=== PATIENT | male | born 1955 | race Two or more races ===

== ENCOUNTER → 2021-12-28 | Outpatient (CLI) | payer BC ==
[2021-12-28 08:41] LABS: Basophils # (auto) 0 10 ^3/uL (0-0.2); Basophils % (auto) 0.7 % (0.0-2.0); Eosinophils # (auto) 0.2 10 ^3/uL (0-0.8); Eosinophils % (auto) 2.2 % (0.0-7.0); Hematocrit 43.4 % (41.0-53.0); Hemoglobin 14.3 g/dL (13.5-17.5); Lymphocytes # (auto) 1.5 10 ^3/uL (0.4-5.4); Lymphocytes % (auto) 22.7 % (10.0-50.0); Mean Corpuscular Hemoglobin 30.3 pg (28.0-32.0); Mean Corpuscular Hgb Conc. 32.9 g/dL (32.0-36.0); Mean Corpuscular Volume 92.1 fL (80.0-100.0); Monocytes # (auto) 0.6 10 ^3/uL (0-1.3); Monocytes % (auto) 8.2 % (0.0-12.0); Neutrophils # (auto) 4.5 10 ^3/uL (1.6-8.6); Neutrophils % (auto) 66.2 % (37.0-80.0); Nucleated Red Blood Cells % 0.1 %; Red Blood Cells 4.71 10^6/uL (4.5-5.90); Red Cell Distribution Width 13.3 % (11.8-14.3); White Blood Cell 6.8 10^3/uL (4.4-10.8)
[2021-12-28 09:29] LABS: Alanine Aminotransferase 42 U/L (16-61); Aspartate Aminotransferase 32 U/L (15-37); GFR African American 132 mL/min; GFR Non-African American 109 mL/min; Total Protein 7.4 g/dL (6.4-8.2)
[2021-12-28 10:17] LABS: Albumin 3.9 g/dL (3.4-5.0); Alkaline Phosphatase 87 U/L (45-117); Anion Gap 6 (5-15); BUN/Creatinine Ratio 11.8; Bilirubin, Total 0.3 mg/dL (0.2-1.0); Blood Urea Nitrogen 9 mg/dL (7-18); Calcium 8.9 mg/dL (8.5-10.1); Carbon Dioxide 25 mmol/L (21-32); Chloride 103 mmol/L (98-107); Glucose 113 mg/dL (74-106); Potassium 4.2 mmol/L (3.5-5.1); Sodium 134 mmol/L (136-145)
[2021-12-28 10:18] LABS: Cholesterol 114 mg/dL (< 200); HDL Cholesterol 39 mg/dL (40-59); LDL Cholesterol 60 mg/dL (< 100); Triglycerides 238 mg/dL (< 150)
== END | disposition home or self-care (01) ==
LOC: LAB 08:30
PROVIDERS: ATTEND Student in an Organized Health Care Education/Training Program
DX: Z12.11 Encounter for screening for malignant neoplasm of colon (principal); E11.9 Type 2 diabetes mellitus without complications; I10 Essential (primary) hypertension
CPT/HCPCS: 36415; 80053; 80061; 83036; 85025

== ENCOUNTER → 2022-03-27 | Outpatient (CLI) | payer BC ==
[2022-03-27 07:53] LABS: Basophils # (auto) 0 10 ^3/uL (0-0.2); Basophils % (auto) 0.6 % (0.0-2.0); Eosinophils # (auto) 0.1 10 ^3/uL (0-0.8); Eosinophils % (auto) 1.9 % (0.0-7.0); Hematocrit 41.7 % (41.0-53.0); Hemoglobin 14.6 g/dL (13.5-17.5); Lymphocytes # (auto) 1.5 10 ^3/uL (0.4-5.4); Lymphocytes % (auto) 25.2 % (10.0-50.0); Mean Corpuscular Hemoglobin 31.7 pg (28.0-32.0); Mean Corpuscular Volume 90.6 fL (80.0-100.0); Monocytes # (auto) 0.6 10 ^3/uL (0-1.3); Monocytes % (auto) 10.4 % (0.0-12.0); Neutrophils # (auto) 3.7 10 ^3/uL (1.6-8.6); Neutrophils % (auto) 61.9 % (37.0-80.0); Nucleated Red Blood Cells % 0.1 %; Red Cell Distribution Width 13.1 % (11.8-14.3); White Blood Cell 5.9 10^3/uL (4.4-10.8)
[2022-03-27 08:45] LABS: Albumin 3.9 g/dL (3.4-5.0); BUN/Creatinine Ratio 10.4; Bilirubin, Total 0.5 mg/dL (0.2-1.0); Calcium 8.9 mg/dL (8.5-10.1); Potassium 4.1 mmol/L (3.5-5.1); Total Protein 7.4 g/dL (6.4-8.2)
[2022-03-27 08:46] LABS: Free T3 3.57 pg/mL (2.3-4.2); Free T4 (Free Thyroxine) 0.97 ng/dL (0.89-1.76)
== END | disposition home or self-care (01) ==
LOC: LAB 07:37
PROVIDERS: ATTEND Internal Medicine
DX: I10 Essential (primary) hypertension (principal)
CPT/HCPCS: 36415; 80053; 80061; 84439; 84443; 84481; 85025

== ENCOUNTER → 2022-04-15 | Outpatient (CLI) | payer BC | END | disposition home or self-care (01) | LOC: XYW 08:46 | PROVIDERS: ATTEND Internal Medicine | DX: I08.3 Combined rheumatic disorders of mitral, aortic and tricuspid valves (principal); E65 Localized adiposity; Z95.2 Presence of prosthetic heart valve | CPT/HCPCS: 93306 ==

== ENCOUNTER → 2022-07-09 | Outpatient (CLI) | payer BC | END | disposition home or self-care (01) | LOC: LAB 08:20 | PROVIDERS: ATTEND Student in an Organized Health Care Education/Training Program | DX: E11.9 Type 2 diabetes mellitus without complications (principal) | CPT/HCPCS: 36415; 82043; 82274; 83036 ==

== ENCOUNTER → 2023-08-05 | Outpatient (CLI) | payer BC ==
[2023-08-05 08:10] LABS: Basophils # (auto) 0 10 ^3/uL (0-0.2); Basophils % (auto) 0.4 % (0.0-2.0); Eosinophils # (auto) 0.1 10 ^3/uL (0-0.8); Eosinophils % (auto) 0.9 % (0.0-7.0); Hematocrit 40.6 % (41.0-53.0); Hemoglobin 13.8 g/dL (13.5-17.5); Lymphocytes # (auto) 1.5 10 ^3/uL (0.4-5.4); Lymphocytes % (auto) 16.9 % (10.0-50.0); Mean Corpuscular Hemoglobin 30.7 pg (28.0-32.0); Mean Corpuscular Hgb Conc. 33.9 g/dL (32.0-36.0); Mean Corpuscular Volume 90.5 fL (80.0-100.0); Monocytes # (auto) 1.1 10 ^3/uL (0-1.3); Monocytes % (auto) 12.1 % (0.0-12.0); Neutrophils # (auto) 6.3 10 ^3/uL (1.6-8.6); Neutrophils % (auto) 69.7 % (37.0-80.0); Red Blood Cells 4.48 10^6/uL (4.5-5.90); White Blood Cell 9.1 10^3/uL (4.4-10.8)
[2023-08-05 08:41] LABS: Alanine Aminotransferase 20 U/L (7-40); Albumin 4.7 g/dL (3.2-4.8); Alkaline Phosphatase 83 U/L (46-116); Anion Gap 6 (5-15); Aspartate Aminotransferase 19 U/L (13-40); BUN/Creatinine Ratio 10.3 (10.0-20.0); Blood Urea Nitrogen 7 mg/dL (9-23); Calcium 9.2 mg/dL (8.5-10.1); Carbon Dioxide 29 mmol/L (20-30); Chloride 97 mmol/L (98-107); Glucose 150 mg/dL (74-106); LDL Cholesterol 54 mg/dL (< 100); Potassium 3.7 mmol/L (3.5-5.1); Sodium 132 mmol/L (136-145); Triglycerides 122 mg/dL (< 150)
[2023-08-05 08:42] LABS: Bilirubin, Total 0.6 mg/dL (0.2-1.0); Cholesterol 113 mg/dL (< 200); HDL Cholesterol 38 mg/dL (40-59); Total Protein 7.1 g/dL (5.7-8.2)
[2023-08-05 09:07] LABS: Creatinine, Urine 173.67 mg/dL (30.0-125.0)
== END | disposition home or self-care (01) ==
LOC: LAB 07:54
PROVIDERS: ATTEND Student in an Organized Health Care Education/Training Program
DX: I10 Essential (primary) hypertension (principal); E11.39 Type 2 diabetes mellitus with other diabetic ophthalmic complication; F17.200 Nicotine dependence, unspecified, uncomplicated; E78.5 Hyperlipidemia, unspecified
CPT/HCPCS: 36415; 80053; 80061; 82043; 82570; 83036; 85025; 87086

== ENCOUNTER → 2024-04-12 | Outpatient (CLI) | payer BC ==
[2024-04-12 08:21] LABS: Urine Bacteria None Seen /hpf (None Seen)
[2024-04-12 08:48] LABS: Basophils # (auto) 0 10 ^3/uL (0-0.2); Basophils % (auto) 0.5 % (0.0-2.0); Eosinophils # (auto) 0.1 10 ^3/uL (0-0.8); Eosinophils % (auto) 0.9 % (0.0-7.0); Hematocrit 42.9 % (41.0-53.0); Hemoglobin 14.9 g/dL (13.5-17.5); Lymphocytes # (auto) 1.3 10 ^3/uL (0.4-5.4); Lymphocytes % (auto) 20.6 % (10.0-50.0); Mean Corpuscular Hemoglobin 31.3 pg (28.0-32.0); Mean Corpuscular Hgb Conc. 34.8 g/dL (32.0-36.0); Mean Corpuscular Volume 89.9 fL (80.0-100.0); Monocytes # (auto) 0.8 10 ^3/uL (0-1.3); Monocytes % (auto) 13.6 % (0.0-12.0); Neutrophils % (auto) 64.4 % (37.0-80.0); Nucleated Red Blood Cells % 0.1 %; Platelet Count (auto) 371 10^3/uL (140-450); Red Blood Cells 4.77 10^6/uL (4.5-5.90); Red Cell Distribution Width 13.1 % (11.8-14.3); White Blood Cell 6.1 10^3/uL (4.4-10.8)
[2024-04-12 08:54] LABS: Urine Blood Negative /uL (Negative); Urine Clarity Clear (Clear); Urine Color Light-Yellow (Yellow); Urine Protein, UAD Negative (Negative); Urine Specific Gravity 1.011 (1.001-1.035); Urine Urobilinogen Normal (Negative); Urine WBC <1 /hpf (0 - 3)
[2024-04-12 09:25] LABS: Alanine Aminotransferase 25 U/L (7-40); Albumin 4.5 g/dL (3.2-4.8); Alkaline Phosphatase 125 U/L (46-116); Anion Gap 7 (5-15); Aspartate Aminotransferase 23 U/L (13-40); BUN/Creatinine Ratio 11.8 (10.0-20.0); Bilirubin, Total 0.5 mg/dL (0.2-1.0); Blood Urea Nitrogen 9 mg/dL (9-23); Calcium 9.8 mg/dL (8.7-10.4); Carbon Dioxide 27 mmol/L (20-31); Chloride 96 mmol/L (98-107); Cholesterol 109 mg/dL (< 200); Glucose 122 mg/dL (74-106); HDL Cholesterol 35 mg/dL (40-59); LDL Cholesterol 54 mg/dL (< 100); Potassium 4.3 mmol/L (3.5-5.1); Sodium 130 mmol/L (136-145); Total Protein 7.4 g/dL (5.7-8.2); Triglycerides 145 mg/dL (< 150)
== END | disposition home or self-care (01) ==
LOC: LAB 08:08
PROVIDERS: ATTEND Nurse Practitioner
DX: E11.9 Type 2 diabetes mellitus without complications (principal); E03.9 Hypothyroidism, unspecified; E78.00 Pure hypercholesterolemia, unspecified
CPT/HCPCS: 36415; 80053; 80061; 81001; 82274; 83036; 84153; 84443; 85025

== ENCOUNTER → 2024-05-18 | Outpatient (CLI) | payer BC | END | disposition home or self-care (01) | LOC: RT 08:26 | PROVIDERS: ATTEND Internal Medicine Pulmonary Disease | DX: R05.9 Cough, unspecified (principal); R06.00 Dyspnea, unspecified | CPT/HCPCS: 94060; 94618; 94727; 94729 ==

== ENCOUNTER → 2024-06-22 | Outpatient (CLI) | payer BC ==
[2024-06-22 08:31] LABS: Basophils # (auto) 0 10 ^3/uL (0-0.2); Basophils % (auto) 0.4 % (0.0-2.0); Eosinophils # (auto) 0 10 ^3/uL (0-0.8); Eosinophils % (auto) 0.6 % (0.0-7.0); Hematocrit 41.9 % (41.0-53.0); Hemoglobin 14.2 g/dL (13.5-17.5); Lymphocytes # (auto) 0.7 10 ^3/uL (0.4-5.4); Lymphocytes % (auto) 13.7 % (10.0-50.0); Mean Corpuscular Hemoglobin 29.9 pg (28.0-32.0); Mean Corpuscular Hgb Conc. 33.8 g/dL (32.0-36.0); Mean Corpuscular Volume 88.3 fL (80.0-100.0); Monocytes # (auto) 0.6 10 ^3/uL (0-1.3); Neutrophils # (auto) 4.1 10 ^3/uL (1.6-8.6); Neutrophils % (auto) 74.3 % (37.0-80.0); Platelet Count (auto) 389 10^3/uL (140-450); Red Blood Cells 4.75 10^6/uL (4.5-5.90); Red Cell Distribution Width 13.5 % (11.8-14.3); White Blood Cell 5.5 10^3/uL (4.4-10.8)
[2024-06-22 08:44] LABS: INR 0.97 (0.9-1.15); Partial Thromboplastin Time 29.3 SEC (24.5-34.5); Prothrombin Time 10.3 sec (9.3-11.8)
[2024-06-22 09:17] LABS: Alanine Aminotransferase 26 U/L (7-40); Albumin 4.6 g/dL (3.2-4.8); Anion Gap 10 (5-15); Aspartate Aminotransferase 28 U/L (13-40); BUN/Creatinine Ratio 9.1 (10.0-20.0); Calcium 10.1 mg/dL (8.7-10.4); Carbon Dioxide 28 mmol/L (20-31); Potassium 4.3 mmol/L (3.5-5.1)
[2024-06-22 09:19] LABS: Bilirubin, Total 0.4 mg/dL (0.2-1.0)
[2024-06-22 09:20] LABS: Total Protein 7.5 g/dL (5.7-8.2)
[2024-06-22 09:32] LABS: Alkaline Phosphatase 122 U/L (46-116); Blood Urea Nitrogen 6 mg/dL (9-23); Chloride 91 mmol/L (98-107); Glucose 194 mg/dL (74-106); Sodium 129 mmol/L (136-145)
== END | disposition home or self-care (01) ==
LOC: LAB 08:10
PROVIDERS: ATTEND Internal Medicine Pulmonary Disease
DX: J43.9 Emphysema, unspecified (principal)
CPT/HCPCS: 36415; 80053; 85025; 85610; 85730

== ENCOUNTER 2024-06-29 07:21 | Day surgery (SDC) | payer BC ==
[~2024-06-29] VITALS: Ht 170.2 cm; Wt 83.5 kg
[~2024-06-29 07:21] MED LIST: ASPI325T6 PO; ATOR-507 PO; HYDR25TA4 PO; LOSA-535 PO; METF-372 PO; METO25TA5 PO
[2024-06-29] MEDS ORDERED: LIDOCAINE 2%HCL (LOCAL ANESTH.) INJ 20ML MDV ONE (07:43)
[2024-06-29] MEDS ORDERED: FLUMAZENIL 0.1 MG/ML INJ 10ML MDV IV ONE (07:43)
[2024-06-29] MEDS ORDERED: NALOXONE HCL 0.4 MG/ML VIAL ONE (07:43)
[2024-06-29] MEDS ORDERED: SODIUM CHLORIDE LOCK 10 ML ONE (07:44)
[2024-06-29] MEDS ORDERED: EPINEPHrine HCL 1 MG/1 ML AMP ONE (07:44)
[2024-06-29] MEDS ORDERED: LIDOCAINE 2% JELLY 11ml (GLYDO) ONE (07:45)
[2024-06-29] MEDS: MIDAZOLAM HCL 5 MG/ML-1ML VIAL ONE (09:06)
[2024-06-29] MEDS: diphenhdrAMINE HCL 50 MG/1 ML VL ONE (09:06)
[2024-06-29] MEDS: GLYCOPYRROLATE 0.2 MG/ML 1ML VIAL ONE (09:06)
[2024-06-29] MEDS: fentaNYL CITRATE 100 MCG/2 ML VL ONE (09:06)
[2024-06-29 09:32] VITALS: TEMP 98.8; O2SAT 100
--- NOTE | 2024-06-29 09:37 | DVHNC2 ---
Procedure - Bronchoscopy procedure note: Indications: Left hilar mass, rule out malignancy. Medicines: Glycopyrrolate 0.2 mg IV push, Versed 5 mg IV push, fentanyl 75 mcg IV push, Benadryl 50 mg. Complications: None Procedure: Patient medications and allergies reviewed. The risks and benefits of the procedure and the sedation options and risk were discussed with the patient's healthcare proxy. All questions were answered and informed consent was obtained. Patient identification and proposed procedure were verified prior to the procedure by the physician, and a nurse, and the respiratory therapist in endoscopy room. The heart rate, respiratory rate, oxygen saturations, blood pressure, adequacy of pulmonary ventilation, and response to care were monitored throughout the procedure. The physical status of the patient was reassessed after the procedure. After obtaining informed consent, the bronchoscope was introduced through the endotracheal tube and advanced into the trachea bronchial tree of both lungs. The procedure was accomplished without difficulty. The patient tolerated the procedure well. Findings: The trachea is in normal caliber. The venice is sharp. The tracheobronchial tree of the right lung was examined to at least the first subsegmental level. The bronchial mucosa and anatomy in the right lung are normal. There are no endobronchial lesions. There was no secretions. The left upper lobe, lingula, and left lower lobe were examined to at least the first subsegmental level. Bronchial mucosa and anatomy in the left upper lobe and lingula are normal. There were no endobronchial lesions. There was copious whitish secretions from left main stem bronchus onward throughout L1-L10. These were easily cleared with 10 mL of saline. Left upper lobe (BOSSAMN) Bronchoalveolar lavage (BAL) obtained. BOSSMAN BAL sent for gram stain and culture, and fungal culture. Left upper lobe brushings and biopsies were also obtained. 10 mL of cold saline were places site with resolution of bleeding. There was no active bleeding at the completion of the procedure. Estimated blood loss: Less than 5 mL. Impression: Left upper/lower lobe compression by hilar mass Left upper lobe biopsy, brushings and bronchoalveolar lavage obtained Recommendation: Follow-up BOSSMAN BAL results. Procedure codes: 02254, bronchoscopy, rigid and flexible, including fluoroscopic guidance, one performed; with bronchial endobronchial biopsy, single or multiple sites ROBERT DIAZ MD Jun 29, 2024 09:37
[2024-06-29 11:10] VITALS: BP 126/88; PULSE 91; RESP 19; O2SAT 94
== END 2024-06-29 11:28 | disposition home or self-care (01) ==
LOC: GI 07:21
PROVIDERS: ATTEND Internal Medicine Pulmonary Disease
DX: R91.8 Other nonspecific abnormal finding of lung field (principal); D02.22 Carcinoma in situ of left bronchus and lung; I25.10 Atherosclerotic heart disease of native coronary artery without angina pectoris; I10 Essential (primary) hypertension; E78.5 Hyperlipidemia, unspecified; F17.210 Nicotine dependence, cigarettes, uncomplicated; E11.9 Type 2 diabetes mellitus without complications; Z95.2 Presence of prosthetic heart valve; Z95.1 Presence of aortocoronary bypass graft; Z98.890 Other specified postprocedural states; Z79.899 Other long term (current) drug therapy; Z79.84 Long term (current) use of oral hypoglycemic drugs
CPT/HCPCS: 31624; 31625; 82962; 88104; 88305; J1200; J2250; J3010; 99152; J0171

== ENCOUNTER → 2024-08-04 | Outpatient (CLI) | payer BC ==
[2024-08-04 08:16] LABS: Basophils # (auto) 0 10 ^3/uL (0-0.2); Basophils % (auto) 0.3 % (0.0-2.0); Eosinophils # (auto) 0.1 10 ^3/uL (0-0.8); Hematocrit 39.5 % (41.0-53.0); Hemoglobin 13.9 g/dL (13.5-17.5); Lymphocytes % (auto) 15.8 % (10.0-50.0); Mean Corpuscular Hemoglobin 30.4 pg (28.0-32.0); Mean Corpuscular Hgb Conc. 35.1 g/dL (32.0-36.0); Mean Corpuscular Volume 86.4 fL (80.0-100.0); Monocytes # (auto) 0.7 10 ^3/uL (0-1.3); Monocytes % (auto) 11.3 % (0.0-12.0); Neutrophils # (auto) 4.4 10 ^3/uL (1.6-8.6); Neutrophils % (auto) 71.6 % (37.0-80.0); Nucleated Red Blood Cells % 0.1 %; Platelet Count (auto) 319 10^3/uL (140-450); Red Blood Cells 4.57 10^6/uL (4.5-5.90); Red Cell Distribution Width 13.9 % (11.8-14.3); White Blood Cell 6.1 10^3/uL (4.4-10.8)
[2024-08-04 08:28] LABS: INR 0.95 (0.9-1.15); Prothrombin Time 10.1 sec (9.3-11.8)
[2024-08-04 08:49] LABS: Alanine Aminotransferase 34 U/L (7-40); Alkaline Phosphatase 109 U/L (46-116); Anion Gap 7 (5-15); Aspartate Aminotransferase 18 U/L (13-40); BUN/Creatinine Ratio 11.3 (10.0-20.0); Calcium 10.1 mg/dL (8.7-10.4); Carbon Dioxide 28 mmol/L (20-31); Chloride 99 mmol/L (98-107); Potassium 4.1 mmol/L (3.5-5.1); Total Protein 7.9 g/dL (5.7-8.2)
[2024-08-04 08:50] LABS: Bilirubin, Total 0.4 mg/dL (0.2-1.0)
[2024-08-04 08:53] LABS: Thyroid Stimulating Hormone 2.35 uIU/mL (0.55-4.78)
[2024-08-04 08:55] LABS: Albumin 4.8 g/dL (3.2-4.8); Blood Urea Nitrogen 8 mg/dL (9-23); Glucose 143 mg/dL (74-106); Sodium 134 mmol/L (136-145)
[2024-08-05 07:07] LABS: Hepatitis B Core Total Antibod Negative (Negative)
[2024-08-05 10:25] LABS: Hepatitis B Surface Antigen Negative (Negative); Hepatitis C Antibody Negative (Negative)
[2024-08-05 11:07] LABS: Thyroxine (T4) 7.5 ug/dL (4.5-12.0)
== END | disposition home or self-care (01) ==
LOC: LAB 07:48
PROVIDERS: ATTEND Internal Medicine
DX: C34.92 Malignant neoplasm of unspecified part of left bronchus or lung (principal)
CPT/HCPCS: 36415; 80053; 83615; 84436; 84443; 85025; 85610; 86803; 87340

== ENCOUNTER → 2024-08-13 | Outpatient (CLI) | payer BC | END | disposition home or self-care (01) | LOC: LAB 08:52 | PROVIDERS: ATTEND Internal Medicine | DX: C34.92 Malignant neoplasm of unspecified part of left bronchus or lung (principal) | CPT/HCPCS: 36415; 84520 ==

== ENCOUNTER → 2024-08-31 | Outpatient (CLI) | payer BC ==
[2024-08-31 09:21] LABS: Alanine Aminotransferase 22 U/L (7-40); Albumin 4.6 g/dL (3.2-4.8); Alkaline Phosphatase 98 U/L (46-116); Anion Gap 8 (5-15); Aspartate Aminotransferase 22 U/L (13-40); BUN/Creatinine Ratio 10.3 (10.0-20.0); Bilirubin, Total 0.3 mg/dL (0.2-1.0); Calcium 9.7 mg/dL (8.7-10.4); Carbon Dioxide 28 mmol/L (20-31); Potassium 3.9 mmol/L (3.5-5.1); Total Protein 7.3 g/dL (5.7-8.2)
[2024-08-31 09:29] LABS: Blood Urea Nitrogen 8 mg/dL (9-23); Chloride 93 mmol/L (98-107); Glucose 248 mg/dL (74-106); Sodium 129 mmol/L (136-145)
== END | disposition home or self-care (01) ==
LOC: LAB 08:31
PROVIDERS: ATTEND Licensed Practical Nurse
DX: Z01.812 Encounter for preprocedural laboratory examination (principal); C34.92 Malignant neoplasm of unspecified part of left bronchus or lung
CPT/HCPCS: 36415; 80053

== ENCOUNTER → 2024-09-03 | Outpatient (CLI) | payer BC ==
[2024-09-03] VITALS (9 sets, daily range): BP systolic 116–142; BP diastolic 69–84; PULSE 74–91; RESP 16–24; O2SAT 93–95
[~2024-09-03] MED LIST changes: +IOHEXOL 300 MG/ML 100ML BOTTLE IJ ONE
[2024-09-03] MEDS: MIDAZOLAM HCL 2MG/2ML 2ml VIAL (1mg/ml) ONE (07:42)
[2024-09-03] MEDS: fentaNYL CITRATE 100 MCG/2 ML VL ONE (07:43)
[2024-09-03] MEDS: fentaNYL CITRATE 100 MCG/2 ML VL IV ONE (07:45)
[2024-09-03] MEDS: MIDAZOLAM HCL 2MG/2ML 2ml VIAL (1mg/ml) IV ONE (07:45)
[2024-09-03] MEDS: LIDOCAINE 2%HCL (LOCAL ANESTH.) INJ 10ml MDV ONE (07:51)
--- NOTE | 2024-09-03 09:51 | DVH ---
EXAM: XY CHEST XRAY 1 VIEW Indication: POST LUNG BX Technique: Single frontal view of the chest was obtained Comparison: 09/03/2024 FINDINGS: Lines and Tubes: None Lungs: Patchy left lung consolidative opacities with volume loss. Pleura: No effusion. No pneumothorax. Cardiomediastinal contours: Unremarkable Bones: No acute osseous abnormality. IMPRESSION: Patchy left lung consolidative opacities with volume loss. No definite pneumothorax status post lung biopsy.
--- NOTE | 2024-09-03 12:19 | DVH ---
EXAM: XY CHEST XRAY 1 VIEW Indication: FOLLOW UP LUNG BX Technique: Single frontal view of the chest was obtained Comparison: XY CHEST XRAY 1 VIEW on DOS: 09/03/24 FINDINGS: Lines and Tubes: None Lungs: Multifocal left lung consolidative opacities. Pleura: No effusion. No pneumothorax. Cardiomediastinal contours: Unremarkable Bones: No acute osseous abnormality. IMPRESSION: No pneumothorax status post lung biopsy.
--- NOTE | 2024-09-03 15:55 | DVH ---
CT CHEST WITHOUT CONTRAST, HISTORY: LUNG CANCER PROCEDURE: Informed consent was obtained. The patient was placed supine on the CT scanner. A limited localization CT scan of the lung was obtained with IV contrast. The skin overlying the lesion was pre pped with chlorhexidine which was allowed to dry and draped in sterile fashion. Time out was performe d. The skin and soft tissues were infiltrated with Xylocaine, and IV sedation was administered. With intermittent CT guidance, a 19 gauge Temno outer coaxial guiding needle was advanced into the left oneyda ng mass. The needle position was confirmed with CT scan. 3 core biopsies were obtained using Temno in ner 20 gauge biopsy needle. The specimens were sent in formalin to pathology for analysis. A viscera l blood patch was applied as the needle was withdrawn the needle was withdrawn, and post procedural C T obtained through the biopsy region. No immediate complication was identified was noted, and patient was transport to recovery in stable condition without respiratory distress. DLP = 2481 mGy-cm. SEDATION: Dr. Akosua Bender was personally responsible for the administration of moderate sedation during the procedure performed, including the use of an independent trained observer who had no other duties during the procedure. The drugs utilized were IV fentanyl and versed (see nursing log for details). The total time of supervision by the attending physician was approximately 60 minutes. FINDINGS: Limited CT scan demonstrates an approximately soft tissue mass in the left upper lobe hilar region and the biopsy needle within the margin of the lung mass. No significant post biopsy hemorrha ge or pneumothorax is noted. IMPRESSION/PLAN: CT guided lung biopsy. Pathology pending. ; will follow up CXRs. Bedrest until cleared by DAWNA chiu post-biopsy CXRs.
== END | disposition home or self-care (01) ==
LOC: XYW 07:15
PROVIDERS: ATTEND Internal Medicine
DX: R91.8 Other nonspecific abnormal finding of lung field (principal); J98.4 Other disorders of lung; F17.210 Nicotine dependence, cigarettes, uncomplicated; Z79.82 Long term (current) use of aspirin; Z79.84 Long term (current) use of oral hypoglycemic drugs; Z79.899 Other long term (current) drug therapy
CPT/HCPCS: 32408; 71045; 88305; 88342; J2003; J2250; J3010; Q9967; 10005; 71250; 77012; 99152; 99153

== ENCOUNTER 2024-10-26 15:46 | Emergency (ER) | payer BC ==
[~2024-10-26] VITALS: Ht 170.2 cm; Wt 81.8 kg
[~2024-10-26 15:46] MED LIST changes: -IOHEXOL 300 MG/ML 100ML BOTTLE IJ ONE
[2024-10-26 16:50] VITALS: BP 152/66; PULSE 90; RESP 20; TEMP 98.9; O2SAT 98
[2024-10-26 17:23] LABS: Basophils # (auto) 0 10 ^3/uL (0-0.2); Basophils % (auto) 0.2 % (0.0-2.0); Eosinophils # (auto) 0 10 ^3/uL (0-0.8); Eosinophils % (auto) 0.8 % (0.0-7.0); Hematocrit 37.4 % (41.0-53.0); Hemoglobin 12.9 g/dL (13.5-17.5); Lymphocytes # (auto) 0.8 10 ^3/uL (0.4-5.4); Lymphocytes % (auto) 13.8 % (10.0-50.0); Mean Corpuscular Hemoglobin 29.4 pg (28.0-32.0); Mean Corpuscular Hgb Conc. 34.5 g/dL (32.0-36.0); Mean Corpuscular Volume 85.1 fL (80.0-100.0); Monocytes # (auto) 0.6 10 ^3/uL (0-1.3); Monocytes % (auto) 10.7 % (0.0-12.0); Neutrophils # (auto) 4.3 10 ^3/uL (1.6-8.6); Neutrophils % (auto) 74.5 % (37.0-80.0); Nucleated Red Blood Cells % 0.1 %; Platelet Count (auto) 392 10^3/uL (140-450); Red Blood Cells 4.39 10^6/uL (4.5-5.90); Red Cell Distribution Width 13.8 % (11.8-14.3); White Blood Cell 5.8 10^3/uL (4.4-10.8)
--- NOTE | 2024-10-26 17:23 | DVH ---
XY CHEST TWO VIEWS ROUTINE CLINICAL HISTORY: HX OF LUNG CX. DX. 2 MONTHS AGO. COUGH. R/O PNA COMPARISON: None TECHNIQUE: Frontal and lateral view of the chest was obtained FINDINGS: Lines and Tubes: None Lungs: Unchanged left upper lung zone and left hilar opacity with volume loss elevated left hemidiap hragm. Right lung is clear. Pleura: No effusion. No pneumothorax. Cardiomediastinal contours: Unremarkable. Midline sternotomy wires are noted. Bones: No acute osseous abnormality. IMPRESSION: Unchanged left upper lung zone and left hilar opacity with left lung volume loss.
[2024-10-26 17:25] LABS: Rapid Strep A Screen-Throat Negative
[2024-10-26 17:36] LABS: Anion Gap 10 (5-15); Calcium 10.1 mg/dL (8.7-10.4); Carbon Dioxide 27 mmol/L (20-31); Chloride 97 mmol/L (98-107); Sodium 134 mmol/L (136-145)
[2024-10-26] MEDS ORDERED: BENZ100C97 PO (17:37)
[2024-10-26] MEDS ORDERED: PSEU120T18 PO (17:37)
[2024-10-26] MEDS ORDERED: AUG875T PO (17:37)
--- NOTE | 2024-10-26 17:37 | ED.PDOC ---
SOB-HPI HPI Comments 68 y/o presents with son for 3x day history of productive cough. Patient states on symptoms persisting following initial onset, with him beginning to loss his voice, today. No recent sick contact endorsed. States history of recent lung cancer diagnosis.in April 2024 and receiving a lung biopsy 2 months ago. Denies any chest pain, shortness of breath, fever, chills, or further associated symptoms. Chief Complaint: Flu like Time Seen by MD: 15:55 Reviewed notes: Nurses Notes, Medications, Allergies Information Source: Patient Mode of Arrival: Ambulatory Past Medical History PAST MEDICAL HISTORY: Cancer (lung cancer ) Surgical History (Other): open aortic valve replacement Social History Smoker: Non-Smoker, Quit Greater Than 1 Year Alcohol: Denies ETOH Use Drugs: Denies Drug Use All Other Systems: Reviewed and Negative (As per HPI) Physical Exam General Appearance: No Apparent Distress, Normal HEENT: Normal ENT Inspection, Pharynx Normal, TMs Normal Neck: Full Range of Motion, Non-Tender, Normal, Normal Inspection Respiratory: Chest Non-Tender, Lungs Clear, No Accessory Muscle Use, No Respiratory Distress, Normal Breath Sounds Cardiovascular: No Edema, No JVD, No Murmur, No Gallop, Normal Peripheral P ulses, Regular Rate/Rhythm Breast Exam: Deferred Gastrointestinal: No Organomegaly, Non Tender, No Pulsatile Mass, Normal Bowel Sounds, Soft Genitalia: Deferred Pelvic: Deferred Rectal: Deferred Extremities: No calf tenderness, Normal capillary refill, Normal inspection, Normal range of motion, Non-tender, No pedal edema Musculoskeletal : Apperance: Normal Neurologic: Alert, body and frame technician II-XII nml as Tested, No Motor Deficits, Normal Affect, Normal Mood, No Sensory Deficits Cerebellar Function: Normal Reflexes: Normal Skin: Dry, Normal Color, Warm Lymphatic: No Adenopathy Was a procedure done? Was a procedure done?: No Differential Dx Differential Diagnosis: Asthma, Bronchitis, Panic Attack, Pneumonia, Respiratory Distress, Pharyngitis, URI X-Ray, Labs, Meds, VS Vital Signs Date Time Temp Pulse Resp B/P (MAP) Pulse Ox O2 Delivery O2 Flow Rate FiO2 10/26/24 16:50 98.9 90 20 152/66 (94) 98 98.9 10/26/24 16:07 98.2 89 16 154/78 (103) 97 98.2 Lab Test 10/26/24 17:13 10/26/24 16:52 Range/Units White Blood Count 5.8 4.4-10.8 10^3/uL Red Blood Count 4.39 L 4.5-5.90 10^6/uL Hemoglobin 12.9 L 13.5-17.5 g/dL Hematocrit 37.4 L 41.0-53.0 % Mean Corpuscular Volume 85.1 80.0-100.0 fL Mean Corpuscular Hemoglobin 29.4 28.0-32.0 pg Mean Corpuscular Hemoglobin Concent 34.5 32.0-36.0 g/dL Red Cell Distribution Width 13.8 11.8-14.3 % Platelet Count 392 140-450 10^3/uL Mean Platelet Volume 6.8 L 6.9-10.8 fL Neutrophils (%) (Auto) 74.5 37.0-80.0 % Lymphocytes (%) (Auto) 13.8 10.0-50.0 % Monocytes (%) (Auto) 10.7 0.0-12.0 % Eosinophils (%) (Auto) 0.8 0.0-7.0 % Basophils (%) (Auto) 0.2 0.0-2.0 % Neutrophils # (Auto) 4.3 1.6-8.6 10 ^3/uL Lymphocytes # (Auto) 0.8 0.4-5.4 10 ^3/uL Monocytes # (Auto) 0.6 0-1.3 10 ^3/uL Eosinophils # (Auto) 0 0-0.8 10 ^3/uL Basophils # (Auto) 0 0-0.2 10 ^3/uL Nucleated Red Blood Cells 0.1 % Sodium Level 134 L 136-145 mmol/L Potassium Level 4.0 3.5-5.1 mmol/L Chloride Level 97 L 98-107 mmol/L Carbon Dioxide Level 27 20-31 mmol/L Anion Gap 10 5-15 Blood Urea Nitrogen 8 L 9-23 mg/dL Creatinine 0.68 L 0.700-1.30 mg/dL Glomerular Filtration Rate Calc 101 >90 mL/min BUN/Creatinine Ratio 11.8 10.0-20.0 Serum Glucose 131 H 74-106 mg/dL Calcium Level 10.1 8.7-10.4 mg/dL Group A Streptococcus Rapid Negative [facility] [id number] [facility] [address] Ph: [phone] DIAGNOSTIC IMAGING Diagnostic Imaging Report : [id number] Signed PATIENT: CLEMENTINA CALDERON ACCT: [id number] UNIT: [id number] : 1955 LOC: ER ROOM / BED: / AGE / SEX: 68 / M ADM STATUS: REG ER SERVICE 54 ORDERING PHYSICIAN: JOSE ANTONIO SEGURA NP PROCEDURE(s): CXR2 - CHEST TWO VIEWS ROUTINE REASON: HX OF LUNG CX. DX. 2 MONTHS AGO. COUGH. R/O PNA ORDER NUMBER(s): [id number], ACCESSION NUMBER(s): [id number] XY CHEST TWO VIEWS ROUTINE CLINICAL HISTORY: HX OF LUNG CX. DX. 2 MONTHS AGO. COUGH. R/O PNA COMPARISON: None TECHNIQUE: Frontal and lateral view of the chest was obtained FINDINGS: Lines and Tubes: None Lungs: Unchanged left upper lung zone and left hilar opacity with volume loss elevated left hemidiaphragm. Right lung is clear. Pleura: No effusion. No pneumothorax. Cardiomediastinal contours: Unremarkable. Midline sternotomy wires are noted. Bones: No acute osseous abnormality. IMPRESSION: Unchanged left upper lung zone and left hilar opacity with left lung volume loss. ATED BY: ELISABETH MCALLISTER DO DICTATED DATE/TIME: 10/26/241720 SIGNED BY: ELISABETH MCALLISTER DO SIGNED DATE/TIME: 10/26/241720 CC: X-Ray, Labs, Meds, VS Comment 68 y/o presents with son for 3x day history of productive cough, Patient arrives alert and oriented, ABC's intact, afebrile, vital signs stable, saturating well in room air Peripheral IV insertion+ labs were ordered. CBC was ordered to exclude anemia, blood loss, or infection. BMP was ordered to exclude electrolyte abnormalities, renal failure, dehydration, hyperglycemia Diagnostic imaging ordered by me and results interpreted by radiology : CXR Labs in the ED showed (pertinent+ and then pertinent-): unremarkable Patient was given:_. Tolerated medications with no adverse reaction. Additional MDM Review of External, Non-ED records: External records reviewed. Discussion with independent historian (EMS, family) history obtained from the patient/parents (if applicable) at bedside Chronic conditions affecting care: None Social determinants of health affecting care: None Consideration of admission (observation or admission): I considered escalation of care to admission for this patient, however given the reassuring workup, the patient is safe for outpatient management. Time of 1ST Reevaluation: 17:35 Reevaluation 1ST: Unchanged Patient Education/Counseling: Diagnosis, Treatment, Need For Follow Up Family Education/Counseling: Diagnosis, Treatment, Need For Follow Up Departure 1 Departure Time of Disposition: 17:35 Impression: Primary Impression: Cough Qualified Codes: R05.1 - Acute cough Disposition: 01 HOME / SELF CARE / HOMELESS Condition: Stable e-Prescriptions Pseudoephedrine-Guaifenesin (Mucinex D) 1 Tab Tab 1 TAB PO BID for 10 Days, #20 TAB 0 Refills Prov: JOSE ANTONIO SEGURA NP 10/26/24 Benzonatate (Benzonatate) 100 Mg Cap 1 CAP PO TID for 10 Days, #30 CAP 0 Refills Prov: JOSE ANTONIO SEGURA NP 10/26/24 Amoxicillin & Pot Clavulanate (AUGMENTIN TABLET) 875 Mg Tb 875 MG PO BID for 7 Days, #14 TAB 0 Refills Prov: JOSE ANTONIO SEGURA NP 10/26/24 Critical Care Note Critical Care Time?: No Stability Stability form required: No Heart Score Heart Score: Heart Score Response (Comments) Value History N/A 0 EKG N/A 0 Age N/A 0 Risk Factors N/A 0 Troponin N/A 0 Total 0 I personally scribed for JOSE ANTONIO SEGURA NP ([email or web address]) on 10/26/24 at 18:04. Electronically submitted by Mayco Trotter ([email or web address]). JOSE ANTONIO SEGURA NP Oct 26, 2024 17:37
[2024-10-26 17:41] LABS: BUN/Creatinine Ratio 11.8 (10.0-20.0)
[2024-10-26 17:42] LABS: Blood Urea Nitrogen 8 mg/dL (9-23); Glucose 131 mg/dL (74-106)
== END 2024-10-26 17:45 | disposition home or self-care (01) ==
LOC: ER 15:46
DX: R05.9 Cough, unspecified (principal); Z95.2 Presence of prosthetic heart valve; Z85.118 Personal history of other malignant neoplasm of bronchus and lung
CPT/HCPCS: 36415; 71046; 80048; 85025; 87070; 87880

== ENCOUNTER 2024-12-02 08:18 | Outpatient (CLI) | payer BC ==
[~2024-12-02 08:18] MED LIST changes: +AUG875T PO; +BENZ100C97 PO; +PSEU120T18 PO
[2024-12-02 08:48] LABS: Hemoglobin 11.1 g/dL (13.5-17.5); Mean Corpuscular Hemoglobin 28.8 pg (28.0-32.0); Nucleated Red Blood Cells % 0.0 %
[2024-12-02 08:51] LABS: Hematocrit 32.9 % (41.0-53.0); Mean Corpuscular Volume 85.1 fL (80.0-100.0)
[2024-12-02 09:34] LABS: Alanine Aminotransferase 19 U/L (7-40); Alkaline Phosphatase 86 U/L (46-116); Anion Gap 10 (5-15); BUN/Creatinine Ratio 22.4 (10.0-20.0); Blood Urea Nitrogen 17 mg/dL (9-23); Calcium 9.6 mg/dL (8.7-10.4); Carbon Dioxide 26 mmol/L (20-31); Potassium 3.9 mmol/L (3.5-5.1); Total Protein 6.9 g/dL (5.7-8.2)
[2024-12-02 09:35] LABS: Albumin 4.1 g/dL (3.2-4.8); Bilirubin, Total 0.3 mg/dL (0.2-1.0)
[2024-12-02 09:42] LABS: Chloride 96 mmol/L (98-107); Glucose 130 mg/dL (74-106); Sodium 132 mmol/L (136-145)
== END 2024-12-02 17:00 | disposition home or self-care (01) ==
LOC: LAB 08:18
PROVIDERS: ATTEND Student in an Organized Health Care Education/Training Program
DX: C34.92 Malignant neoplasm of unspecified part of left bronchus or lung (principal); C79.51 Secondary malignant neoplasm of bone; I31.31 Malignant pericardial effusion in diseases classified elsewhere; J44.0 Chronic obstructive pulmonary disease with (acute) lower respiratory infection
CPT/HCPCS: 36415; 80053; 85025

== ENCOUNTER 2024-12-13 07:24 | Outpatient (CLI) | payer BC ==
[2024-12-13 08:29] LABS: Hemoglobin 11.8 g/dL (13.5-17.5); Nucleated Red Blood Cells % 0.0 %
[2024-12-13 08:34] LABS: Hematocrit 34.5 % (41.0-53.0); Mean Corpuscular Hemoglobin 29.3 pg (28.0-32.0); Mean Corpuscular Volume 85.5 fL (80.0-100.0)
[2024-12-13 08:47] LABS: Alanine Aminotransferase 18 U/L (7-40); Albumin 4.5 g/dL (3.2-4.8); Alkaline Phosphatase 107 U/L (46-116); Anion Gap 10 (5-15); BUN/Creatinine Ratio 27.3 (10.0-20.0); Bilirubin, Total 0.3 mg/dL (0.2-1.0); Blood Urea Nitrogen 15 mg/dL (9-23); Carbon Dioxide 26 mmol/L (20-31); Cholesterol 114 mg/dL (< 200); Potassium 4.6 mmol/L (3.5-5.1); Total Protein 7.5 g/dL (5.7-8.2); Triglycerides 134 mg/dL (< 150)
[2024-12-13 08:52] LABS: Calcium 10.5 mg/dL (8.7-10.4); Chloride 97 mmol/L (98-107); Glucose 110 mg/dL (74-106); HDL Cholesterol 38 mg/dL (40-59); Sodium 133 mmol/L (136-145)
== END 2024-12-13 17:00 | disposition home or self-care (01) ==
LOC: LAB 07:24
PROVIDERS: ATTEND Licensed Practical Nurse
DX: I10 Essential (primary) hypertension (principal); E78.5 Hyperlipidemia, unspecified; E11.69 Type 2 diabetes mellitus with other specified complication; E55.9 Vitamin D deficiency, unspecified; Z12.11 Encounter for screening for malignant neoplasm of colon; R94.2 Abnormal results of pulmonary function studies
CPT/HCPCS: 36415; 80053; 80061; 82043; 82306; 82607; 83036; 85025

== ENCOUNTER → 2024-12-17 | Outpatient (CLI) | payer BC ==
[2024-12-17 08:31] LABS: Hemoglobin 11.3 g/dL (13.5-17.5); Nucleated Red Blood Cells % 0.0 %
[2024-12-17 08:33] LABS: Hematocrit 33.1 % (41.0-53.0); Mean Corpuscular Hemoglobin 29.2 pg (28.0-32.0); Mean Corpuscular Volume 85.4 fL (80.0-100.0)
[2024-12-17 08:48] LABS: Alanine Aminotransferase 28 U/L (7-40); Alkaline Phosphatase 90 U/L (46-116); Anion Gap 9 (5-15); BUN/Creatinine Ratio 37.5 (10.0-20.0); Blood Urea Nitrogen 21 mg/dL (9-23); Calcium 10.0 mg/dL (8.7-10.4); Carbon Dioxide 25 mmol/L (20-31); Glucose 96 mg/dL (74-106); Potassium 3.9 mmol/L (3.5-5.1); Total Protein 7.2 g/dL (5.7-8.2)
[2024-12-17 08:49] LABS: Albumin 4.4 g/dL (3.2-4.8); Chloride 98 mmol/L (98-107); Sodium 132 mmol/L (136-145)
[2024-12-17 08:53] LABS: Bilirubin, Total 0.3 mg/dL (0.2-1.0)
[2024-12-17 08:59] LABS: Thyroid Stimulating Hormone 3.9 uIU/mL (0.55-4.78)
== END | disposition home or self-care (01) ==
LOC: LAB 07:41
PROVIDERS: ATTEND Student in an Organized Health Care Education/Training Program
DX: C34.92 Malignant neoplasm of unspecified part of left bronchus or lung (principal); C79.51 Secondary malignant neoplasm of bone; J44.0 Chronic obstructive pulmonary disease with (acute) lower respiratory infection; I31.31 Malignant pericardial effusion in diseases classified elsewhere
CPT/HCPCS: 36415; 80053; 83615; 84436; 84443; 84480; 85025

== ENCOUNTER 2024-12-24 07:57 | Outpatient (CLI) | payer BC ==
[2024-12-24 08:24] LABS: Hematocrit 33.6 % (41.0-53.0); Hemoglobin 11.3 g/dL (13.5-17.5); Mean Corpuscular Hemoglobin 29.0 pg (28.0-32.0); Mean Corpuscular Volume 85.8 fL (80.0-100.0); Nucleated Red Blood Cells % 0.0 %
[2024-12-24 08:45] LABS: Alanine Aminotransferase 38 U/L (7-40); Albumin 4.3 g/dL (3.2-4.8); Alkaline Phosphatase 95 U/L (46-116); Anion Gap 8 (5-15); BUN/Creatinine Ratio 21.3 (10.0-20.0); Bilirubin, Total 0.3 mg/dL (0.2-1.0); Blood Urea Nitrogen 13 mg/dL (9-23); Calcium 9.2 mg/dL (8.7-10.4); Carbon Dioxide 26 mmol/L (20-31); Potassium 4.6 mmol/L (3.5-5.1); Total Protein 7.0 g/dL (5.7-8.2)
[2024-12-24 08:46] LABS: Chloride 94 mmol/L (98-107); Glucose 211 mg/dL (74-106); Sodium 128 mmol/L (136-145)
[2024-12-24 08:50] LABS: Thyroid Stimulating Hormone 2.14 uIU/mL (0.55-4.78)
[2024-12-24 08:54] LABS: Free T3 3.23 pg/mL (2.3-4.2); Free T4 (Free Thyroxine) 1.17 ng/dL (0.89-1.76)
== END 2024-12-24 17:00 | disposition home or self-care (01) ==
LOC: LAB 07:57
PROVIDERS: ATTEND Student in an Organized Health Care Education/Training Program
DX: C34.92 Malignant neoplasm of unspecified part of left bronchus or lung (principal); C79.51 Secondary malignant neoplasm of bone; I31.31 Malignant pericardial effusion in diseases classified elsewhere; J44.0 Chronic obstructive pulmonary disease with (acute) lower respiratory infection
CPT/HCPCS: 36415; 80053; 83615; 84439; 84443; 84481; 85025

== ENCOUNTER → 2024-12-31 | Outpatient (CLI) | payer BC ==
[2024-12-31 08:53] LABS: Hematocrit 33.2 % (41.0-53.0); Hemoglobin 11.5 g/dL (13.5-17.5); Mean Corpuscular Hemoglobin 29.7 pg (28.0-32.0); Mean Corpuscular Volume 85.9 fL (80.0-100.0); Nucleated Red Blood Cells % 0.0 %
[2024-12-31 09:41] LABS: Alanine Aminotransferase 36 U/L (7-40); Albumin 4.5 g/dL (3.2-4.8); Alkaline Phosphatase 96 U/L (46-116); Anion Gap 9 (5-15); BUN/Creatinine Ratio 23.4 (10.0-20.0); Blood Urea Nitrogen 15 mg/dL (9-23); Calcium 9.3 mg/dL (8.7-10.4); Carbon Dioxide 26 mmol/L (20-31); Potassium 4.3 mmol/L (3.5-5.1); Total Protein 7.2 g/dL (5.7-8.2)
[2024-12-31 09:42] LABS: Bilirubin, Total 0.3 mg/dL (0.2-1.0)
[2024-12-31 09:53] LABS: Chloride 95 mmol/L (98-107); Glucose 213 mg/dL (74-106); Sodium 130 mmol/L (136-145)
[2024-12-31 11:43] LABS: Thyroid Stimulating Hormone 2.1 uIU/mL (0.55-4.78)
== END | disposition home or self-care (01) ==
LOC: LAB 08:28
PROVIDERS: ATTEND Student in an Organized Health Care Education/Training Program
DX: C34.92 Malignant neoplasm of unspecified part of left bronchus or lung (principal); C79.51 Secondary malignant neoplasm of bone; I31.31 Malignant pericardial effusion in diseases classified elsewhere; J44.0 Chronic obstructive pulmonary disease with (acute) lower respiratory infection
CPT/HCPCS: 36415; 80053; 83615; 84436; 84443; 84480; 85025

== ENCOUNTER → 2025-01-07 | Outpatient (CLI) | payer BC ==
[2025-01-07 09:13] LABS: Hematocrit 33.6 % (41.0-53.0); Hemoglobin 11.5 g/dL (13.5-17.5); Mean Corpuscular Hemoglobin 29.3 pg (28.0-32.0); Mean Corpuscular Volume 85.9 fL (80.0-100.0); Nucleated Red Blood Cells % 0.0 %
[2025-01-07 09:47] LABS: Albumin 4.3 g/dL (3.2-4.8); Alkaline Phosphatase 90 U/L (46-116); Anion Gap 8 (5-15); BUN/Creatinine Ratio 25.9 (10.0-20.0); Bilirubin, Total 0.3 mg/dL (0.2-1.0); Blood Urea Nitrogen 15 mg/dL (9-23); Calcium 9.1 mg/dL (8.7-10.4); Carbon Dioxide 27 mmol/L (20-31); Chloride 95 mmol/L (98-107); Glucose 197 mg/dL (74-106); Potassium 4.1 mmol/L (3.5-5.1); Sodium 130 mmol/L (136-145); Total Protein 6.8 g/dL (5.7-8.2)
[2025-01-07 09:53] LABS: Alanine Aminotransferase 33 U/L (7-40)
[2025-01-07 10:27] LABS: Free T3 3.58 pg/mL (2.3-4.2); Free T4 (Free Thyroxine) 1.31 ng/dL (0.89-1.76)
[2025-01-07 11:19] LABS: Thyroid Stimulating Hormone 2.54 uIU/mL (0.55-4.78)
== END | disposition home or self-care (01) ==
LOC: LAB 08:48
PROVIDERS: ATTEND Student in an Organized Health Care Education/Training Program
DX: C34.92 Malignant neoplasm of unspecified part of left bronchus or lung (principal); C79.51 Secondary malignant neoplasm of bone; I31.31 Malignant pericardial effusion in diseases classified elsewhere; J44.0 Chronic obstructive pulmonary disease with (acute) lower respiratory infection
CPT/HCPCS: 36415; 80053; 83615; 84439; 84443; 84481; 85025

== ENCOUNTER 2025-01-13 10:51 | Outpatient (CLI) | payer BC ==
[2025-01-11 10:42] LABS: INR 1.03 (0.9-1.15); Partial Thromboplastin Time 30.7 SEC (24.5-34.5); Prothrombin Time 10.9 sec (9.3-11.8)
[~2025-01-13] VITALS: Ht 170.2 cm; Wt 77.1 kg
[~2025-01-13 10:51] MED LIST changes: -AUG875T PO; -BENZ100C97 PO; +ONDA-155 PO; -PSEU120T18 PO
[2025-01-13] MEDS: MIDAZOLAM HCL 2MG/2ML 2ml VIAL (1mg/ml) ONE (13:23)
[2025-01-13] MEDS: LIDOCAINE 2%HCL (LOCAL ANESTH.) INJ 20ML MDV ONE (13:23)
[2025-01-13] MEDS: fentaNYL CITRATE 100 MCG/2 ML VL ONE (13:23)
[2025-01-13] MEDS: HEPARIN SODIUM (PORCINE) 5000 UNITS/ML 1ML VIAL ONE (13:43)
[2025-01-13] MEDS: ceFAZolin 1GM/50ML 50 ML IV ONE (13:43)
[2025-01-13] MEDS: LIDOCAINE W/ EPINEPHRINE 2% INJ 20ML VIAL ONE (14:29)
[2025-01-13 15:06] VITALS: BP 103/57; PULSE 63; RESP 18; TEMP 98.4; O2SAT 95
[2025-01-13 15:17] VITALS: BP 113/62; PULSE 64; RESP 17; O2SAT 92
[2025-01-13 15:32] VITALS: BP 96/56; PULSE 61; RESP 22; O2SAT 92
--- NOTE | 2025-01-13 15:44 | DVH ---
PROCEDURE: ULTRASOUND GUIDED access the right internal jugular vein HISTORY: MARÍA ELENA CATH ACCESS DOCUMENTATION: Informed consent was obtained and a procedural time out was performed. FINDINGS: The risks and benefits of the procedure including bleeding, infection and pneumothorax were explained to the patient and written informed consent obtained. Following standard prep and under ultrasound guidance the right internal jugular vein was accessed wi th a micropuncture needle and a wire coiled within and advanced into the superior vena cava. IMPRESSION: 1. Ultrasound guided access to right internal jugular vein
[2025-01-13 15:47] VITALS: BP 102/55; PULSE 61; RESP 16; O2SAT 92
[2025-01-13 16:02] VITALS: BP 107/61; PULSE 58; RESP 14; O2SAT 92
--- NOTE | 2025-01-13 16:25 | DVH ---
DATE: PROCEDURE: PORT PLACEMENT USING FLUOROSCOPY AND ULTRASOUND HISTORY: 69 Male with need for port requiring central venous access for lung cancer. DOCUMENTATION: Informed consent was obtained and a procedural time out was performed. SEDATION: Moderate sedation was utilized during the procedure. The patient received benzodiazepines a nd opioids, the dosing of which was documented in the patient s permanent medical record. Pre-sedatio n history and evaluation revealed no contraindications to sedation. The patient s level of consciousn ess and physiologic status was monitored continuously by the physician and nursing staff throughout t he procedure. Total intra-service moderate sedation time was 60 minutes. Moderate sedation was admini stered by interventional radiology nursing staff under the direct supervision of Dr. Melissa. Adequate analgesia and anxiolysis was obtained using intermittent, titrated dosages of medications with const ant monitoring of patient`s vital signs and telemetry. Total face to face sedation time: 60 minutes. FLUORO: 3.5 minutes, 17 mGy, 2 Gy-m2 Total Images: 5 TECHNIQUE: The skin over the right internal jugular vein and chest was sterilely prepped, draped and anesthetized with 1% lidocaine with epinephrine. The vein was accessed with a 21 gauge needle under u ltrasound guidance with an image archived in the PACS. The access was upsized and a guidewire was the n passed into the central veins under fluoroscopy. A short transverse incision was made over the ches t wall and the port pocket created using blunt and sharp technique after anesthetizing with 1% lidoca ine with epinephrine. The single-lumen power port hub was inserted into the pocket. The port catheter was then tunneled to the venous entry site, cut to the appropriate length, and inserted through a pe el away sheath. A final radiograph was obtained and the port was flushed with heparin. The pocket was then closed using 3-0 Vicryl and Dermabond. Sterile dressings were applied. Procedural physician complied with all CLIP criteria, including preprocedural hand hygiene and use of maximum sterile barriers including hat, gown, sterile gloves, mask, and head to toe drape. The neck and chest were prepped with chlorhexidine solution and draped in the usual sterile fashion. The prep solution was allowed to dry prior to puncture. FINDINGS: Ultrasound demonstrates a patent right internal jugular vein. The tip of the port catheter terminates near the cavoatrial junction. No complications are identified. IMPRESSION: 1. SUCCESSFUL SINGLE LUMEN POWER PORT PLACEMENT. THE PORT IS READY FOR IMMEDIATE USE.
== END 2025-01-13 17:00 | disposition home or self-care (01) ==
LOC: CATH 10:51
PROVIDERS: ATTEND Student in an Organized Health Care Education/Training Program
DX: C34.92 Malignant neoplasm of unspecified part of left bronchus or lung (principal); C79.51 Secondary malignant neoplasm of bone; J44.0 Chronic obstructive pulmonary disease with (acute) lower respiratory infection; I31.31 Malignant pericardial effusion in diseases classified elsewhere; I10 Essential (primary) hypertension; E11.9 Type 2 diabetes mellitus without complications; E78.00 Pure hypercholesterolemia, unspecified; Z95.4 Presence of other heart-valve replacement; Z79.82 Long term (current) use of aspirin; Z79.84 Long term (current) use of oral hypoglycemic drugs; Z79.899 Other long term (current) drug therapy; Z87.891 Personal history of nicotine dependence
CPT/HCPCS: 36415; 36561; 77001; 85610; 85730; C1769; C1788; J0690; J1644; J2250; J3010; J7030; 76937; 99152; 99153

== ENCOUNTER → 2025-01-14 | Outpatient (CLI) | payer BC ==
[2025-01-14 10:44] LABS: Hematocrit 29.3 % (41.0-53.0); Hemoglobin 10.1 g/dL (13.5-17.5); Mean Corpuscular Hemoglobin 29.6 pg (28.0-32.0); Mean Corpuscular Volume 86.2 fL (80.0-100.0); Nucleated Red Blood Cells % 0.0 %
[2025-01-14 10:47] LABS: Alanine Aminotransferase 36 U/L (7-40); Albumin 3.9 g/dL (3.2-4.8); Alkaline Phosphatase 83 U/L (46-116); Anion Gap 8 (5-15); BUN/Creatinine Ratio 20.0 (10.0-20.0); Blood Urea Nitrogen 11 mg/dL (9-23); Carbon Dioxide 26 mmol/L (20-31); Potassium 4.0 mmol/L (3.5-5.1); Total Protein 6.5 g/dL (5.7-8.2)
[2025-01-14 10:50] LABS: Thyroid Stimulating Hormone 1.74 uIU/mL (0.55-4.78)
[2025-01-14 10:51] LABS: Bilirubin, Total 0.3 mg/dL (0.2-1.0); Calcium 8.6 mg/dL (8.7-10.4); Chloride 95 mmol/L (98-107); Glucose 209 mg/dL (74-106); Sodium 129 mmol/L (136-145)
[2025-01-14 11:11] LABS: Free T3 2.8 pg/mL (2.3-4.2); Free T4 (Free Thyroxine) 1.11 ng/dL (0.89-1.76)
== END | disposition home or self-care (01) ==
LOC: LAB 09:57
PROVIDERS: ATTEND Student in an Organized Health Care Education/Training Program
DX: C34.92 Malignant neoplasm of unspecified part of left bronchus or lung (principal); C79.51 Secondary malignant neoplasm of bone; I31.31 Malignant pericardial effusion in diseases classified elsewhere; J44.0 Chronic obstructive pulmonary disease with (acute) lower respiratory infection
CPT/HCPCS: 36415; 80053; 83615; 84439; 84443; 84481; 85025

== ENCOUNTER → 2025-01-21 | Outpatient (CLI) | payer BC ==
[2025-01-21 11:02] LABS: Hematocrit 29.9 % (41.0-53.0); Hemoglobin 10.3 g/dL (13.5-17.5); Mean Corpuscular Hemoglobin 29.9 pg (28.0-32.0); Mean Corpuscular Volume 86.4 fL (80.0-100.0); Nucleated Red Blood Cells % 0.0 %
[2025-01-21 11:34] LABS: Alanine Aminotransferase 28 U/L (7-40); Albumin 4.1 g/dL (3.2-4.8); Alkaline Phosphatase 87 U/L (46-116); Anion Gap 10 (5-15); BUN/Creatinine Ratio 25.9 (10.0-20.0); Blood Urea Nitrogen 15 mg/dL (9-23); Calcium 8.9 mg/dL (8.7-10.4); Carbon Dioxide 25 mmol/L (20-31); Potassium 4.1 mmol/L (3.5-5.1); Total Protein 6.7 g/dL (5.7-8.2)
[2025-01-21 11:35] LABS: Bilirubin, Total 0.3 mg/dL (0.2-1.0); Chloride 92 mmol/L (98-107); Glucose 259 mg/dL (74-106); Sodium 127 mmol/L (136-145)
[2025-01-21 11:40] LABS: Free T4 (Free Thyroxine) 1.08 ng/dL (0.89-1.76)
[2025-01-21 11:41] LABS: Free T3 3.13 pg/mL (2.3-4.2); Thyroid Stimulating Hormone 2.36 uIU/mL (0.55-4.78)
== END | disposition home or self-care (01) ==
LOC: LAB 10:11
PROVIDERS: ATTEND Student in an Organized Health Care Education/Training Program
DX: C34.92 Malignant neoplasm of unspecified part of left bronchus or lung (principal); C79.51 Secondary malignant neoplasm of bone; J44.0 Chronic obstructive pulmonary disease with (acute) lower respiratory infection; I31.31 Malignant pericardial effusion in diseases classified elsewhere
CPT/HCPCS: 36415; 80053; 83615; 84439; 84443; 84481; 85025

== ENCOUNTER 2025-01-28 09:55 | Outpatient (CLI) | payer BC ==
[2025-01-28 10:26] LABS: Hematocrit 33.4 % (41.0-53.0); Hemoglobin 11.7 g/dL (13.5-17.5); Mean Corpuscular Hemoglobin 30.5 pg (28.0-32.0); Mean Corpuscular Volume 86.6 fL (80.0-100.0); Nucleated Red Blood Cells % 0.1 %
[2025-01-28 10:59] LABS: Alanine Aminotransferase 33 U/L (7-40); Albumin 4.4 g/dL (3.2-4.8); Alkaline Phosphatase 93 U/L (46-116); Anion Gap 10 (5-15); BUN/Creatinine Ratio 19.7 (10.0-20.0); Bilirubin, Total 0.3 mg/dL (0.2-1.0); Blood Urea Nitrogen 15 mg/dL (9-23); Calcium 9.4 mg/dL (8.7-10.4); Carbon Dioxide 26 mmol/L (20-31); Potassium 4.0 mmol/L (3.5-5.1); Total Protein 7.3 g/dL (5.7-8.2)
[2025-01-28 11:02] LABS: Chloride 92 mmol/L (98-107); Glucose 183 mg/dL (74-106); Sodium 128 mmol/L (136-145)
[2025-01-28 11:12] LABS: Thyroid Stimulating Hormone 2.63 uIU/mL (0.55-4.78)
[2025-01-28 11:21] LABS: Free T3 3.58 pg/mL (2.3-4.2)
[2025-01-28 11:22] LABS: Free T4 (Free Thyroxine) 1.29 ng/dL (0.89-1.76)
== END 2025-01-28 17:00 | disposition home or self-care (01) ==
LOC: LAB 09:55
PROVIDERS: ATTEND Student in an Organized Health Care Education/Training Program
DX: C34.92 Malignant neoplasm of unspecified part of left bronchus or lung (principal); C79.51 Secondary malignant neoplasm of bone; J44.0 Chronic obstructive pulmonary disease with (acute) lower respiratory infection; I31.31 Malignant pericardial effusion in diseases classified elsewhere
CPT/HCPCS: 36415; 80053; 83615; 84439; 84443; 84481; 85025

== ENCOUNTER 2025-02-07 09:11 | Outpatient (CLI) | payer BC ==
[2025-02-07 09:32] LABS: Hematocrit 30.9 % (41.0-53.0); Hemoglobin 10.6 g/dL (13.5-17.5); Mean Corpuscular Hemoglobin 29.5 pg (28.0-32.0); Mean Corpuscular Volume 86.1 fL (80.0-100.0); Nucleated Red Blood Cells % 0.1 %
[2025-02-07 10:05] LABS: Alanine Aminotransferase 30 U/L (7-40); Albumin 4.0 g/dL (3.2-4.8); Alkaline Phosphatase 92 U/L (46-116); Anion Gap 7 (5-15); BUN/Creatinine Ratio 18.8 (10.0-20.0); Blood Urea Nitrogen 13 mg/dL (9-23); Calcium 9.0 mg/dL (8.7-10.4); Carbon Dioxide 28 mmol/L (20-31); Potassium 4.5 mmol/L (3.5-5.1); Total Protein 6.9 g/dL (5.7-8.2)
[2025-02-07 10:10] LABS: Bilirubin, Total 0.3 mg/dL (0.2-1.0); Chloride 95 mmol/L (98-107); Glucose 147 mg/dL (74-106); Sodium 130 mmol/L (136-145)
[2025-02-07 10:35] LABS: Free T4 (Free Thyroxine) 1.09 ng/dL (0.89-1.76)
[2025-02-07 10:36] LABS: Free T3 2.72 pg/mL (2.3-4.2)
[2025-02-07 11:08] LABS: Thyroid Stimulating Hormone 1.19 uIU/mL (0.55-4.78)
== END 2025-02-07 17:00 | disposition home or self-care (01) ==
LOC: LAB 09:11
PROVIDERS: ATTEND Student in an Organized Health Care Education/Training Program
DX: C34.92 Malignant neoplasm of unspecified part of left bronchus or lung (principal); C79.51 Secondary malignant neoplasm of bone; I31.31 Malignant pericardial effusion in diseases classified elsewhere; J44.0 Chronic obstructive pulmonary disease with (acute) lower respiratory infection
CPT/HCPCS: 36415; 80053; 83615; 84439; 84443; 84481; 85025

== ENCOUNTER 2025-02-11 08:32 | Outpatient (CLI) | payer BC ==
[2025-02-11 10:41] LABS: Hematocrit 36.1 % (41.0-53.0); Hemoglobin 12.2 g/dL (13.5-17.5); Mean Corpuscular Hemoglobin 29.5 pg (28.0-32.0); Mean Corpuscular Volume 87.4 fL (80.0-100.0); Nucleated Red Blood Cells % 0.1 %
[2025-02-11 10:54] LABS: Alanine Aminotransferase 40 U/L (7-40); Albumin 4.4 g/dL (3.2-4.8); Alkaline Phosphatase 101 U/L (46-116); Anion Gap 11 (5-15); BUN/Creatinine Ratio 22.4 (10.0-20.0); Bilirubin, Total 0.3 mg/dL (0.2-1.0); Blood Urea Nitrogen 13 mg/dL (9-23); Calcium 9.5 mg/dL (8.7-10.4); Carbon Dioxide 24 mmol/L (20-31); Potassium 4.1 mmol/L (3.5-5.1); Total Protein 7.5 g/dL (5.7-8.2)
[2025-02-11 10:55] LABS: Chloride 95 mmol/L (98-107); Free T3 3.34 pg/mL (2.3-4.2); Glucose 136 mg/dL (74-106); Sodium 130 mmol/L (136-145)
[2025-02-11 10:56] LABS: Free T4 (Free Thyroxine) 1.24 ng/dL (0.89-1.76); Thyroid Stimulating Hormone 1.91 uIU/mL (0.55-4.78)
== END 2025-02-11 17:00 | disposition home or self-care (01) ==
LOC: LAB 08:32
PROVIDERS: ATTEND Student in an Organized Health Care Education/Training Program
DX: C34.92 Malignant neoplasm of unspecified part of left bronchus or lung (principal); C79.51 Secondary malignant neoplasm of bone; I31.31 Malignant pericardial effusion in diseases classified elsewhere; J44.0 Chronic obstructive pulmonary disease with (acute) lower respiratory infection
CPT/HCPCS: 36415; 80053; 83615; 84439; 84443; 84481; 85025

== ENCOUNTER → 2025-02-18 | Outpatient (CLI) | payer BC ==
[2025-02-18 09:13] LABS: Hematocrit 32.7 % (41.0-53.0); Hemoglobin 11.0 g/dL (13.5-17.5); Mean Corpuscular Hemoglobin 29.7 pg (28.0-32.0); Mean Corpuscular Volume 88.0 fL (80.0-100.0); Nucleated Red Blood Cells % 0.0 %
[2025-02-18 09:26] LABS: Alanine Aminotransferase 30 U/L (7-40); Albumin 4.1 g/dL (3.2-4.8); Alkaline Phosphatase 90 U/L (46-116); Anion Gap 11 (5-15); BUN/Creatinine Ratio 21.7 (10.0-20.0); Blood Urea Nitrogen 13 mg/dL (9-23); Calcium 9.1 mg/dL (8.7-10.4); Carbon Dioxide 25 mmol/L (20-31); Potassium 3.8 mmol/L (3.5-5.1); Total Protein 7.0 g/dL (5.7-8.2)
[2025-02-18 09:29] LABS: Thyroid Stimulating Hormone 2.14 uIU/mL (0.55-4.78)
[2025-02-18 09:33] LABS: Bilirubin, Total 0.3 mg/dL (0.2-1.0); Chloride 95 mmol/L (98-107); Glucose 193 mg/dL (74-106); Sodium 131 mmol/L (136-145)
[2025-02-18 10:55] LABS: Free T4 (Free Thyroxine) 1.28 ng/dL (0.89-1.76)
[2025-02-18 10:57] LABS: Free T3 3.25 pg/mL (2.3-4.2)
== END | disposition home or self-care (01) ==
LOC: LAB 08:43
PROVIDERS: ATTEND Student in an Organized Health Care Education/Training Program
DX: C34.92 Malignant neoplasm of unspecified part of left bronchus or lung (principal); C79.51 Secondary malignant neoplasm of bone; I31.31 Malignant pericardial effusion in diseases classified elsewhere; J44.0 Chronic obstructive pulmonary disease with (acute) lower respiratory infection
CPT/HCPCS: 36415; 80053; 83615; 84439; 84443; 84481; 85025

== ENCOUNTER → 2025-03-04 | Outpatient (CLI) | payer BC ==
[2025-03-04 08:56] LABS: Hematocrit 32.8 % (41.0-53.0); Hemoglobin 11.0 g/dL (13.5-17.5); Mean Corpuscular Hemoglobin 29.5 pg (28.0-32.0); Mean Corpuscular Volume 87.7 fL (80.0-100.0); Nucleated Red Blood Cells % 0.0 %
[2025-03-04 09:14] LABS: Alanine Aminotransferase 32 U/L (7-40); Albumin 4.3 g/dL (3.2-4.8); Alkaline Phosphatase 96 U/L (46-116); Anion Gap 10 (5-15); BUN/Creatinine Ratio 15.7 (10.0-20.0); Calcium 9.3 mg/dL (8.7-10.4); Carbon Dioxide 28 mmol/L (20-31); Glucose 103 mg/dL (74-106); Potassium 4.3 mmol/L (3.5-5.1); Total Protein 7.3 g/dL (5.7-8.2)
[2025-03-04 09:15] LABS: Bilirubin, Total 0.3 mg/dL (0.2-1.0); Blood Urea Nitrogen 8 mg/dL (9-23); Chloride 93 mmol/L (98-107); Sodium 131 mmol/L (136-145)
[2025-03-04 09:17] LABS: Thyroid Stimulating Hormone 1.45 uIU/mL (0.55-4.78)
== END | disposition home or self-care (01) ==
LOC: LAB 08:22
PROVIDERS: ATTEND Student in an Organized Health Care Education/Training Program
DX: C34.92 Malignant neoplasm of unspecified part of left bronchus or lung (principal); C79.51 Secondary malignant neoplasm of bone; I31.31 Malignant pericardial effusion in diseases classified elsewhere; J44.0 Chronic obstructive pulmonary disease with (acute) lower respiratory infection
CPT/HCPCS: 36415; 80053; 83615; 84436; 84443; 84480; 85025

== ENCOUNTER 2025-03-25 07:53 | Outpatient (CLI) | payer BC ==
[2025-03-25 08:28] LABS: Mean Corpuscular Volume 87.2 fL (80.0-100.0)
[2025-03-25 08:32] LABS: Hematocrit 34.0 % (41.0-53.0); Hemoglobin 11.7 g/dL (13.5-17.5); Mean Corpuscular Hemoglobin 30.0 pg (28.0-32.0); Nucleated Red Blood Cells % 0.0 %
[2025-03-25 08:44] LABS: Alanine Aminotransferase 35 U/L (7-40); Albumin 4.2 g/dL (3.2-4.8); Alkaline Phosphatase 103 U/L (46-116); Anion Gap 10 (5-15); BUN/Creatinine Ratio 13.2 (10.0-20.0); Calcium 9.9 mg/dL (8.7-10.4); Carbon Dioxide 26 mmol/L (20-31); Potassium 4.3 mmol/L (3.5-5.1); Total Protein 7.4 g/dL (5.7-8.2)
[2025-03-25 08:45] LABS: Bilirubin, Total 0.3 mg/dL (0.2-1.0)
[2025-03-25 08:53] LABS: Blood Urea Nitrogen 7 mg/dL (9-23); Chloride 90 mmol/L (98-107); Glucose 121 mg/dL (74-106); Sodium 126 mmol/L (136-145)
== END 2025-03-25 17:00 | disposition home or self-care (01) ==
LOC: LAB 07:53
DX: J38.00 Paralysis of vocal cords and larynx, unspecified (principal); R49.0 Dysphonia; R05.3 Chronic cough
CPT/HCPCS: 36415; 80053; 85025

== ENCOUNTER 2025-04-01 10:17 | Outpatient (CLI) | payer BC ==
[2025-04-01 11:05] LABS: Hemoglobin 11.8 g/dL (13.5-17.5); Nucleated Red Blood Cells % 0.0 %
[2025-04-01 11:10] LABS: Hematocrit 34.7 % (41.0-53.0); Mean Corpuscular Hemoglobin 30.1 pg (28.0-32.0); Mean Corpuscular Volume 88.4 fL (80.0-100.0)
[2025-04-01 11:19] LABS: Alanine Aminotransferase 37 U/L (7-40); Albumin 4.2 g/dL (3.2-4.8); Alkaline Phosphatase 101 U/L (46-116); Anion Gap 8 (5-15); BUN/Creatinine Ratio 19.3 (10.0-20.0); Blood Urea Nitrogen 11 mg/dL (9-23); Calcium 10.1 mg/dL (8.7-10.4); Carbon Dioxide 28 mmol/L (20-31); Glucose 98 mg/dL (74-106); Potassium 4.2 mmol/L (3.5-5.1); Total Protein 7.4 g/dL (5.7-8.2)
[2025-04-01 11:20] LABS: Bilirubin, Total 0.2 mg/dL (0.2-1.0); Chloride 92 mmol/L (98-107); Sodium 128 mmol/L (136-145)
[2025-04-01 11:22] LABS: Free T3 3.03 pg/mL (2.3-4.2)
[2025-04-01 11:23] LABS: Free T4 (Free Thyroxine) 1.15 ng/dL (0.89-1.76)
[2025-04-01 11:25] LABS: Thyroid Stimulating Hormone 1.73 uIU/mL (0.55-4.78)
== END 2025-04-04 17:00 | disposition home or self-care (01) ==
LOC: LAB 10:17
PROVIDERS: ATTEND Student in an Organized Health Care Education/Training Program
DX: C34.92 Malignant neoplasm of unspecified part of left bronchus or lung (principal); C79.51 Secondary malignant neoplasm of bone; I31.31 Malignant pericardial effusion in diseases classified elsewhere; J44.9 Chronic obstructive pulmonary disease, unspecified
CPT/HCPCS: 36415; 80053; 83615; 84439; 84443; 84481; 85025

== ENCOUNTER 2025-04-11 08:53 | Outpatient (CLI) | payer BC ==
[2025-04-11 09:54] LABS: Potassium 4.3 mmol/L (3.5-5.1)
[2025-04-11 09:55] LABS: Anion Gap 7 (5-15); Carbon Dioxide 29 mmol/L (20-31)
[2025-04-11 09:56] LABS: Calcium 10.3 mg/dL (8.7-10.4)
[2025-04-11 09:57] LABS: Chloride 91 mmol/L (98-107); Sodium 127 mmol/L (136-145)
[2025-04-11 10:01] LABS: BUN/Creatinine Ratio 18.5 (10.0-20.0); Blood Urea Nitrogen 10 mg/dL (9-23)
[2025-04-11 10:02] LABS: Glucose 132 mg/dL (74-106)
[2025-04-11 10:04] LABS: Microalb/Creat Ratio, Urine 101.0
== END 2025-04-11 17:00 | disposition home or self-care (01) ==
LOC: LAB 08:53
PROVIDERS: ATTEND Internal Medicine
DX: E11.9 Type 2 diabetes mellitus without complications (principal)
CPT/HCPCS: 36415; 80048; 82043; 82570

== ENCOUNTER 2025-04-29 09:51 | Outpatient (CLI) | payer BC ==
[2025-04-29 10:41] LABS: Hematocrit 35.1 % (41.0-53.0); Hemoglobin 11.7 g/dL (13.5-17.5); Mean Corpuscular Hemoglobin 29.5 pg (28.0-32.0); Mean Corpuscular Volume 88.4 fL (80.0-100.0); Nucleated Red Blood Cells % 0.0 %
[2025-04-29 10:57] LABS: Thyroid Stimulating Hormone 1.72 uIU/mL (0.55-4.78)
[2025-04-29 10:58] LABS: Albumin 4.3 g/dL (3.2-4.8); Alkaline Phosphatase 108 U/L (46-116); Anion Gap 8 (5-15); BUN/Creatinine Ratio 21.4 (10.0-20.0); Blood Urea Nitrogen 12 mg/dL (9-23); Carbon Dioxide 27 mmol/L (20-31); Potassium 4.5 mmol/L (3.5-5.1); Total Protein 7.6 g/dL (5.7-8.2)
[2025-04-29 10:59] LABS: Bilirubin, Total 0.3 mg/dL (0.2-1.0)
[2025-04-29 11:03] LABS: Alanine Aminotransferase 44 U/L (7-40); Calcium 10.5 mg/dL (8.7-10.4); Chloride 93 mmol/L (98-107); Glucose 114 mg/dL (74-106); Sodium 128 mmol/L (136-145)
[2025-04-29 11:18] LABS: Free T3 2.99 pg/mL (2.3-4.2)
[2025-04-29 11:19] LABS: Free T4 (Free Thyroxine) 0.99 ng/dL (0.89-1.76)
== END 2025-04-29 17:00 | disposition home or self-care (01) ==
LOC: LAB 09:51
PROVIDERS: ATTEND Internal Medicine
DX: C34.92 Malignant neoplasm of unspecified part of left bronchus or lung (principal); C79.51 Secondary malignant neoplasm of bone; I31.31 Malignant pericardial effusion in diseases classified elsewhere; J44.9 Chronic obstructive pulmonary disease, unspecified
CPT/HCPCS: 36415; 80053; 83615; 84439; 84443; 84481; 85025

== ENCOUNTER 2025-05-11 06:18 | Inpatient (IN) | payer BC ==
[~2025-05-11] VITALS: Ht 177.8 cm; Wt 154.8 kg
--- NOTE | 2025-05-11 06:31 | ED.PDOC ---
History of Present Illness HPI Comments 69-year-old male BIBFaheem with prior medical history of diabetes, hypertension, lung cancer: Surgical history of open aortic valve replacement in the chief complaint of shortness a breath. EMS report on the patient having had a sudden onset of shortness breath associated with coughing up bright red blood at 0500 this morning which prompted the patient to call 911 from home. When EMS arrived on scene the patient was satting at 80% on room air and was put on 3L via NC in route and is satting at 98%. Patient currently has a blood pressure 144/83 in the ER. Denies any other symptoms at this time. Denies chills, fever, N/V/D, CP. No other associated symptoms, modifiers, recent injuries or sick contacts present at this time. Time Seen by MD: 06:00 Reviewed Notes: Nurses Notes, Medications, Allergies Allergies: Coded Allergies: NO KNOWN ALLERGIES (Unverified , 06/28/24) Home Meds Reported Medications Ondansetron HCl (Ondansetron) 4 Mg Tab, 8 MG PO DAILY 01/11/25 Losartan Potassium (Losartan Potassium) 100 Mg Tab, 100 MG PO DAILY, TAB 06/28/24 Metformin Hydrochloride (Metformin Hcl) 1,000 Mg Tab, 1000 MG PO BID, TAB 06/28/24 Metoprolol Tartrate (Metoprolol Tartrate) 25 Mg Tab, 25 MG PO BID, TAB 06/28/24 Atorvastatin Calcium (Lipitor) 40 Mg Tab, 40 MG PO DAILY, TAB 06/28/24 Hydrochlorothiazide (Hydrochlorothiazide) 25 Mg Tab, 25 MG PO DAILY, TAB 06/28/24 Aspirin (Aspirin) 325 Mg Tab, 325 MG PO DAILY, TAB 06/28/24 Information Source: Patient, Emergency Med Personnel Mode of Arrival: EMS Severity: Moderate Timing: Minutes Duration: Since onset, Minutes Prehospital treatment: None Past Medical History PAST MEDICAL HISTORY: Cancer (lung), DM, HTN Surgical History (Other): Open Aortic valve replacement Family History Family History: Reviewed,noncontributory to illness, Unknown Social History Smoker: Non-Smoker, Quit Greater Than 1 Year Alcohol: Denies ETOH Use Drugs: Denies Drug Use Lives In: Home Constitutional: denies: chills, diaphoresis, fatigue, fever, malaise, sweats, weakness, others EENTM: denies: blurred vision, double vision, ear bleeding, ear discharge, ear drainage, ear pain, ear ringing, eye pain, eye redness, hearing loss, mouth pain, mouth swelling, nasal discharge, nose bleeding, nose congestion, nose pain, photophobia, tearing, throat pain, throat swelling, voice changes, others Respiratory: reports: cough, shortness of breath; denies: hemoptysis, orthopnea, SOB at rest, SOB with excertion, stridor, wheezing, others Cardiovascular: denies: chest pain, dizzy spells, diaphoresis, Dyspnea on exertion, edema, irregular heart beat, left arm pain, lightheadedness, palpitations, PND, syncope, others Gastrointestinal: denies: abdomen distended, abdominal pain, blood streaked bowels, constipated, diarrhea, dysphagia, difficulty swallowing, hematemesis, melena, nausea, poor appetite, poor fluid intake, rectal bleeding, rectal pain, vomiting, others Genitourinary: denies: burning, dysuria, flank pain, frequency, hematuria, incontinence, penile discharge, penile sore, pain, testicle pain, testicle sw elling, urgency, others Neurological: denies: dizziness, fainting, headache, left sided numbness, left sided weakness, numbness, paresthesia, pre-existing deficit, right sided numbness, right sided weakness, seizure, speech problems, tingling, tremors, weakness, others Musculoskeletal: denies: back pain, gout, joint pain, joint swelling, muscle pain, muscle stiffness, neck pain, others Integumetry: denies: bruises, change in color, change in hair/nails, dryness, laceration, lesions, lumps, rash, wounds, others Allergic/Immunocompromised: denies: Difficulty Healing, Frequent Infections, Hives, Itching, others Hematologic/Lymphatic: denies: anemia, blood clots, easy bleeding, easy bruising, swollen glands, others Endocrine: denies: excessive hunger, excessive sweating, excessive thirst, excessive urination, flushing, intolerance to cold, intolerance to heat, unexplained weight gain, unexplained weight loss, others Psychiatric: denies: anxiety, bipolar disorder, depression, hopeless, panic disorder, schizophrenia, sleepless, suicidal, others All Other Systems: Reviewed and Negative Physical Exam General Appearance: Moderate Distress, Normal HEENT: Normal ENT Inspection, Pharynx Normal, TMs Normal Neck: Full Range of Motion, Non-Tender, Normal, Normal Inspection Respiratory: Chest Non-Tender, Lungs Clear, No Accessory Muscle Use, No Respiratory Distress, Normal Breath Sounds, Other (Coarse breath sounds) Cardiovascular: No Edema, No JVD, No Murmur, No Gallop, Normal Peripheral Pulses, Regular Rate/Rhythm Breast Exam: Deferred Gastrointestinal: No Organomegaly, Non Tender, No Pulsatile Mass, Normal Bowel Sounds, Soft Genitalia: Deferred Pelvic: Deferred Rectal: Deferred Extremities: No calf tenderness, Normal capillary refill, Normal inspection, Normal range of motion, Non-tender, No pedal edema Musculoskeletal : Apperance: Normal Neurologic: Alert, corporate intern II-XII nml as Tested, No Motor Deficits, Normal Affect, Normal Mood, No Sensory Deficits Cerebellar Function: NOT DONE Reflexes: NOT DONE Skin: Dry, Normal Color, Warm Peripheral Pulses: 3+ Radial (R), 3+ Radial (L) Lymphatic: No Adenopathy Was a procedure done? Was a procedure done?: No Differential Dx Considerations may include: Anemia Electrolyte imbalance X-Ray, Labs, Meds, VS Vital Signs Date Time Temp Pulse Resp B/P (MAP) Pulse Ox O2 Delivery O2 Flow Rate FiO2 05/11/25 06:45 111 17 97 Nasal Cannula* 3 32 05/11/25 06:44 97.8 111 17 124/ 97 97.8 05/11/25 06:24 98.1 107 28 144/83 98 98.1 Lab Test 05/11/25 07:02 Range/Units White Blood Count 6.4 4.4-10.8 10^3/uL Red Blood Count 3.96 L 4.5-5.90 10^6/uL Hemoglobin 11.5 L 13.5-17.5 g/dL Hematocrit 34.8 L 41.0-53.0 % Mean Corpuscular Volume 88.0 80.0-100.0 fL Mean Corpuscular Hemoglobin 29.0 28.0-32.0 pg Mean Corpuscular Hemoglobin Concent 32.9 32.0-36.0 g/dL Red Cell Distribution Width 15.4 H 11.8-14.3 % Platelet Count 391 140-450 10^3/uL Mean Platelet Volume 6.7 L 6.9-10.8 fL Neutrophils (%) (Auto) 84.0 H 37.0-80.0 % Lymphocytes (%) (Auto) 6.1 L 10.0-50.0 % Monocytes (%) (Auto) 9.2 0.0-12.0 % Eosinophils (%) (Auto) 0.5 0.0-7.0 % Basophils (%) (Auto) 0.2 0.0-2.0 % Neutrophils # (Auto) 5.4 1.6-8.6 10 ^3/uL Lymphocytes # (Auto) 0.4 0.4-5.4 10 ^3/uL Monocytes # (Auto) 0.6 0-1.3 10 ^3/uL Eosinophils # (Auto) 0 0-0.8 10 ^3/uL Basophils # (Auto) 0 0-0.2 10 ^3/uL Nucleated Red Blood Cells 0.0 % Sodium Level 128 L 136-145 mmol/L Potassium Level 4.2 3.5-5.1 mmol/L Chloride Level 93 L 98-107 mmol/L Carbon Dioxide Level 28 20-31 mmol/L Anion Gap 7 5-15 Blood Urea Nitrogen 7 L 9-23 mg/dL Creatinine 0.45 L 0.700-1.30 mg/dL Glomerular Filtration Rate Calc 113 >90 mL/min BUN/Creatinine Ratio 15.6 10.0-20.0 Serum Glucose 97 74-106 mg/dL Calcium Level 10.3 8.7-10.4 mg/dL Total Bilirubin 0.3 0.2-1.0 mg/dL Aspartate Amino Transferase (AST) 59 H 13-40 U/L Alanine Aminotransferase (ALT) 36 7-40 U/L Alkaline Phosphatase 109 46-116 U/L Troponin I High Sensitivity 81 *H </=54 ng/L Total Protein 7.3 5.7-8.2 g/dL Albumin 4.0 3.2-4.8 g/dL Current Medications Medications (Trade) Dose Ordered Sig/Jeri Route Start Time Stop Time Status Last Admin Sodium Chloride 1,000 ml @ 150 mls/hr Q6H40M ONCE IV 05/11/25 06:30 05/11/25 13:09 05/11/25 07:05 Patient alert. Came in because of coughing up blood. Vitals stable. Answering questions. Establish intravenous access. Was given fluids. Possibly will need bronchoscopy. Cardiac marker elevated. Demand. AST elevated. Mild anemia. Explained to the patient that he will be admitted for further studies. Continue monitoring. Time of 1ST Reevaluation: 06:22 Reevaluation 1ST: Unchanged Patient Education/Counseling: Diagnosis, Treatment, Prognosis Family Education/Counseling: No Family Present SEPSIS Sepsis Screen Physician Orders Chest Portable (05/11/25 06:28) Urinalysis (05/11/25 06:28) Sodium Chloride 0.9% (05/11/25 06:30) Vital Signs Date Time Temp Pulse Resp B/P (MAP) Pulse Ox O2 Delivery O2 Flow Rate FiO2 05/11/25 06:45 111 17 97 Nasal Cannula* 3 32 05/11/25 06:44 97.8 111 17 124/ 97 97.8 05/11/25 06:24 98.1 107 28 144/83 98 98.1 Laboratory Tests Test 05/11/25 07:02 White Blood Count 6.4 10^3/uL (4.4-10.8) Medications Medications Dose Ordered Sig/Jeri Route Start Time Stop Time Status Last Admin Dose Admin Sodium Chloride 1,000 ml @ 150 mls/hr Q6H40M ONCE IV 05/11/25 06:30 05/11/25 13:09 05/11/25 07:05 Departure 1 Departure Time of Disposition: 06:36 Impression: Primary Impression: Hemoptysis Additional Impressions: Anemia Qualified Codes: D64.9 - Anemia, unspecified Demand ischemia Disposition: ADMITTED INPATIENT Admit to: Med Surg Condition: Guarded Critical Care Note Critical Care Time?: Yes (90 min-critical care time only) Stability Stability form required: No Heart Score Heart Score: Heart Score Response (Comments) Value History N/A 0 EKG N/A 0 Age N/A 0 Risk Factors N/A 0 Troponin N/A 0 Total 0 I personally scribed for DANIEL ABREU MD ([email or web address]) on 05/11/25 at 06:31. Electronically submitted by Leo Steele ([email or web address]). DANIEL ABREU MD May 11, 2025 06:31
[2025-05-11 06:45] VITALS: PULSE 111; RESP 17; O2SAT 97
[2025-05-11] MEDS: SODIUM CHLORIDE 0.9% 1,000 ML IV ONE (07:05)
[2025-05-11 07:22] LABS: Hematocrit 34.8 % (41.0-53.0); Hemoglobin 11.5 g/dL (13.5-17.5); Mean Corpuscular Hemoglobin 29.0 pg (28.0-32.0); Mean Corpuscular Volume 88.0 fL (80.0-100.0); Nucleated Red Blood Cells % 0.0 %
[2025-05-11 07:31] VITALS: PULSE 105; RESP 16; O2SAT 93
--- NOTE | 2025-05-11 07:33 | DVH ---
CLINICAL INFORMATION: Shortness of breath. TECHNIQUE: Single AP portable chest radiograph was obtained. COMPARISON: XY CHEST TWO VIEWS ROUTINE on DOS: 10/26/24, XY CHEST XRAY 1 VIEW on DOS: 09/03/24, XY CHEST XRAY 1 VIEW on DOS: 09/03/24 FINDINGS: Lungs: Volume loss in the left lung with interstitial opacities and patchy left perihilar opacities may be partly due to sequelae of post therapeutic changes and postsurgical changes. Superimposed consolidation not excluded, although findings are Likely minimally changed compared to the prior exam. There is atelectasis in the right lung base. No pneumothorax or pleural effusion visualized. Cardiac: Heart size is within normal limits. Pulmonary vasculature: Mild prominence of the pulmonary vasculature. Mediastinum/alyssa: Right internal jugular port catheter distal tip is at the proximal to mid SVC. Bones: No acute osseous abnormality identified. Other: No other significant findings. IMPRESSION: 1. Sequelae of postsurgical changes and post therapeutic changes in the left lung as described above. Superimposed consolidation not completely excluded in the appropriate clinical setting, although minimal change compared to the prior exam. Correlate with clinical findings. 2. Mildly prominent pulmonary vasculature may suggest a mild degree of pulmonary vascular congestion in the appropriate clinical setting. 3. Additional findings as described above.
[2025-05-11 07:35] LABS: Alanine Aminotransferase 36 U/L (7-40); Albumin 4.0 g/dL (3.2-4.8); Alkaline Phosphatase 109 U/L (46-116); Anion Gap 7 (5-15); BUN/Creatinine Ratio 15.6 (10.0-20.0); Calcium 10.3 mg/dL (8.7-10.4); Carbon Dioxide 28 mmol/L (20-31); Glucose 97 mg/dL (74-106); Potassium 4.2 mmol/L (3.5-5.1); Total Protein 7.3 g/dL (5.7-8.2)
[2025-05-11 07:36] LABS: Bilirubin, Total 0.3 mg/dL (0.2-1.0)
[2025-05-11 07:38] LABS: Blood Urea Nitrogen 7 mg/dL (9-23); Chloride 93 mmol/L (98-107); Sodium 128 mmol/L (136-145)
[2025-05-11 09:37] LABS: Urine Protein, UAD Negative (Negative)
[2025-05-11] MEDS ORDERED: ONDA16TA PO (10:13)
[2025-05-11] MEDS ORDERED: DEXTROSE (50%) 50ML SYRG IV PRN (10:15)
[2025-05-11] MEDS ORDERED: DOCUSATE SOD 100 MG CAP PO PRN (10:15)
[2025-05-11] MEDS ORDERED: ACETAMINOPHEN 325 MG TAB PO PRN (10:15)
[2025-05-11] MEDS ORDERED: ONDANSETRON HCL 4 MG/2 ML VIAL IV PRN (10:15)
[2025-05-11] MEDS ORDERED: HYDROcodone-ACET 5/325MG TAB PO PRN (10:15)
--- NOTE | 2025-05-11 10:41 | DVHHP2 ---
History of Present Illness Reason for Visit: Coughing up blood History of Present Illness Alexandre James is a 69-year-old male with past medical history of stage 4 lung cancer, hypertension, diabetes, and hyperlipidemia, who was brought to the hospital by EMS due to coughing up blood. Patient woke up about 0500 feeling short of breath and began when. When he was coughing he began having blood in his sputum come up. He states he went to the sink and continued to cough up blood. That is when he had his call EMS. He states he was coughing up blood clots and it was enough blood to fill up a coffee mug. He states he usually has a cough with phlegm, but never has had blood in it before. Cardiovascular: HTN, hyperipidemia Heme/Onc: Cancer (lung, stage 4) Endocrine: Diabetes Past Surgical History: CABG (Open heart surgery with AVR and bypass), Other (Port a cath placement) Smoke: Quit (1 year ago) ALCOHOL: none (quit 1 year ago) Drugs: None Lives: with Family Domestic Violence: Neg Review of Systems Constitutional: No: Fever, Chills, Sweats, Weakness, Malaise, Other Eyes: No: Pain, Vision change, Conjunctivae inflammation, Eyelid inflammation, Other, Redness ENT: No: Ear pain, Ear discharge, Nose pain, Nose discharge, Nose congestion, Mouth pain, Mouth swelling, Throat pain, Throat swelling, Other Respiratory: Shortness of breath, Other (Hemoptysis); No: Cough, Dry, SOB with excertion, Wheezing, Hemoptysis, Pleuritic Pain, Sputum, Wheezing Cardiovascular: No: Chest Pain, Palpitations, Orthopnea, Paroxysmal Noc. Dyspnea, Edema, Lt Headedness, Other Gastrointestinal: No: Nausea, Vomiting, Abdominal Pain, Diarrhea, Constipation, Melena, Hematochezia, Other Genitourinary: No Dysuria, No Frequency, No Incontinence, No Hematuria, No Retention, No Other Musculoskeletal: No: other, neck pain, shoulder pain, arm pain, back pain, hand pain, leg pain, foot pain Skin: No: Rash, Lesions, Jaundice, Bruising, Other Neurological: No: Weakness, Numbness, Incoordination, Change in speech, Confusion, Seizures, Other Allergies: Coded Allergies: NO KNOWN ALLERGIES (Unverified , 06/28/24) Medications Current Medications Medications Dose Ordered Sig/Jeri Route Start Time Stop Time Status Last Admin Dose Admin Acetaminophen/ Hydrocodone Bitart 1 tab Q4HP PRN PO 05/11/25 10:15 UNV Ondansetron HCl 4 mg Q4HP PRN IV 05/11/25 10:15 UNV Docusate Sodium 100 mg BIDPRN PRN PO 05/11/25 10:15 UNV Acetaminophen 650 mg Q6HP PRN PO 05/11/25 10:15 UNV Hydrochlorothiazide 25 mg DAILY PO 05/12/25 10:00 UNV Metoprolol Tartrate 25 mg BID PO 05/11/25 22:00 UNV Patient Own Medication 40 mg DAILY PO 05/12/25 10:00 UNV Patient Own Medication 100 mg DAILY PO 05/12/25 10:00 UNV Patient Own Medication 8 mg TIDP PRN PO 05/11/25 10:15 UNV Exam Vital Signs Vital Signs Date Time Temp Pulse Resp B/P (MAP) Pulse Ox O2 Delivery O2 Flow Rate FiO2 05/11/25 09:00 104 20 114/67 (83) 93 05/11/25 07:31 98.4 98.4 05/11/25 07:31 Nasal Cannula* 3 32 General Appearance: Alert, Oriented X3, Cooperative, mild distress HEENT: Atraumatic, PERRLA Respiratory: Other (Diminshed breath sounds) Cardiovascular: Normal S1, Normal S2, Other (ST) Abdominal: Normal bowel sounds, Soft, No tenderness, No hepatospenomegaly Extremities: No clubbing, No cyanosis, No edema Skin: No rashes, No breakdown, No significant lesion Neuro: Normal gait, Normal speech, Strength at 5/5 X4 ext, Normal tone Psych/Mental Status: Mental status NL, Mood NL Labs/Xrays Labs Test 05/11/25 09:28 05/11/25 07:02 Range/Units Urine Color Colorless Yellow Urine Clarity Clear Clear Urine pH 7.0 5.0-9.0 Urine Specific [place] 1.005 1.001-1.035 Urine Protein Negative Negative Urine Ketones Negative Negative Urine Blood Negative Negative /uL Urine Nitrite Negative Negative Urine Bilirubin Negative Negative Urine Urobilinogen Normal Negative mg/dL Urine Leukocyte Esterase Negative Negative /uL Urine RBC None seen 0 - 3 /hpf Urine Microscopic WBC < 1 0-3 /HPF Urine Squamous Epithelial Cells None seen <5 /hpf Urine Bacteria None seen None Seen /hpf Urine Glucose Normal Normal mg/dL White Blood Count 6.4 4.4-10.8 10^3/uL Red Blood Count 3.96 L 4.5-5.90 10^6/uL Hemoglobin 11.5 L 13.5-17.5 g/dL Hematocrit 34.8 L 41.0-53.0 % Mean Corpuscular Volume 88.0 80.0-100.0 fL Mean Corpuscular Hemoglobin 29.0 28.0-32.0 pg Mean Corpuscular Hemoglobin Concent 32.9 32.0-36.0 g/dL Red Cell Distribution Width 15.4 H 11.8-14.3 % Platelet Count 391 140-450 10^3/uL Mean Platelet Volume 6.7 L 6.9-10.8 fL Neutrophils (%) (Auto) 84.0 H 37.0-80.0 % Lymphocytes (%) (Auto) 6.1 L 10.0-50.0 % Monocytes (%) (Auto) 9.2 0.0-12.0 % Eosinophils (%) (Auto) 0.5 0.0-7.0 % Basophils (%) (Auto) 0.2 0.0-2.0 % Neutrophils # (Auto) 5.4 1.6-8.6 10 ^3/uL Lymphocytes # (Auto) 0.4 0.4-5.4 10 ^3/uL Monocytes # (Auto) 0.6 0-1.3 10 ^3/uL Eosinophils # (Auto) 0 0-0.8 10 ^3/uL Basophils # (Auto) 0 0-0.2 10 ^3/uL Nucleated Red Blood Cells 0.0 % Sodium Level 128 L 136-145 mmol/L Potassium Level 4.2 3.5-5.1 mmol/L Chloride Level 93 L 98-107 mmol/L Carbon Dioxide Level 28 20-31 mmol/L Anion Gap 7 5-15 Blood Urea Nitrogen 7 L 9-23 mg/dL Creatinine 0.45 L 0.700-1.30 mg/dL Glomerular Filtration Rate Calc 113 >90 mL/min BUN/Creatinine Ratio 15.6 10.0-20.0 Serum Glucose 97 74-106 mg/dL Calcium Level 10.3 8.7-10.4 mg/dL Total Bilirubin 0.3 0.2-1.0 mg/dL Aspartate Amino Transferase (AST) 59 H 13-40 U/L Alanine Aminotransferase (ALT) 36 7-40 U/L Alkaline Phosphatase 109 46-116 U/L Troponin I High Sensitivity 81 *H </=54 ng/L Total Protein 7.3 5.7-8.2 g/dL Albumin 4.0 3.2-4.8 g/dL TECHNIQUE: Single AP portable chest radiograph was obtained. FINDINGS: Lungs: Volume loss in the left lung with interstitial opacities and patchy left perihilar opacities may be partly due to sequelae of post therapeutic changes and postsurgical changes. Superimposed consolidation not excluded, although findings are Likely minimally changed compared to the prior exam. There is atelectasis in the right lung base. No pneumothorax or pleural effusion visualized. Cardiac: Heart size is within normal limits. Pulmonary vasculature: Mild prominence of the pulmonary vasculature. Mediastinum/alyssa: Right internal jugular port catheter distal tip is at the proximal to mid SVC. Bones: No acute osseous abnormality identified. Other: No other significant findings. IMPRESSION: 1. Sequelae of postsurgical changes and post therapeutic changes in the left lung as described above. Superimposed consolidation not completely excluded in the appropriate clinical setting, although minimal change compared to the prior exam. Correlate with clinical findings. 2. Mildly prominent pulmonary vasculature may suggest a mild degree of pulmonary vascular congestion in the appropriate clinical setting. 3. Additional findings as described above. SEPSIS Sepsis Screen Date sepsis recognized/suspect: May 11, 2025 Time Sepsis recognized/suspect: 0731 Recent Procedure: No On Antibiotic Therapy: No Respiratory Rate >20: No Heart Rate >90: Yes Temp<36 C (96.8 F) or >38.3 C: No SBP <90 or MAP <65 mmHG: No New Acute Mental Status Change: No Is the patient on CPAP, BIPAP,: No Physician Orders Chest Portable (05/11/25 06:28) Sodium Chloride 0.9% (05/11/25 06:30) Admit (05/11/25 10:08) Code Status (05/11/25 10:08) 2 Gm Sodium Diet (05/11/25 Lunch) Hydrocodone-Acet 5/325mg Tab ([place] 5/32 (05/11/25 10:15) Ondansetron Hcl (Zofran) (05/11/25 10:15) Docusate Sodium Capsule (Colace Capsule) (05/11/25 10:15) Complete Blood Count (05/12/25 04:00) Comprehensive Metabolic Panel (05/12/25 04:00) Condition: Serious (05/11/25 10:08) Acetaminophen Tablet (Tylenol Tablet) (05/11/25 10:15) Hydrochlorothiazide Tablet (Hydrochlorot (05/12/25 10:00) Metoprolol Tartrate Tablet (Lopressor Ta (05/11/25 22:00) (Nf) Atorvastatin Calcium (Lipitor) (05/12/25 10:00) (Nf) Losartan Potassium (05/12/25 10:00) (Nf) Ondansetron (Ondansetron Odt) (05/11/25 10:15) Vital Signs Date Time Temp Pulse Resp B/P (MAP) Pulse Ox O2 Delivery O2 Flow Rate FiO2 05/11/25 09:00 104 20 114/67 (83) 93 05/11/25 08:00 105 05/11/25 07:31 98.4 105 16 109/55 (73) 94 98.4 05/11/25 07:31 105 16 93 Nasal Cannula* 3 32 05/11/25 06:45 111 17 97 Nasal Cannula* 3 32 05/11/25 06:44 97.8 111 17 124/ 97 97.8 05/11/25 06:24 98.1 107 28 144/83 98 98.1 Laboratory Tests Test 05/11/25 07:02 White Blood Count 6.4 10^3/uL (4.4-10.8) Medications Medications Dose Ordered Sig/Jeri Route Start Time Stop Time Status Last Admin Dose Admin Sodium Chloride 1,000 ml @ 150 mls/hr Q6H40M ONCE IV 05/11/25 06:30 05/11/25 13:09 05/11/25 07:05 150 MLS/HR Assessment/Plan Assessment/Plan Assessment: Hemoptysis, Stage 4 lung cancer, Hypertension, Hyperlipidemia, Diabetes, Plan: Admit to Med-Surg, Pulmonology consult, Supplemental oxygen as needed, Consider cT scan of chest, Home medications reconciled, Plan discussed with: Patient, Son My Orders Orders - DANNA JAIME Procedure Category Date Status Time Admit ADMIT 05/11/25 Transmitted 10:08 Code Status CODE 05/11/25 Transmitted 10:08 2 Gm Sodium Diet DIET 05/11/25 Transmitted Lunch Hydrocodone-Acet PHA 05/11/25 Logged 5/325mg Tab ([place] 10:15 Ondansetron Hcl PHA 05/11/25 Logged (Zofran) 10:15 Docusate Sodium PHA 05/11/25 Logged Capsule (Colace 10:15 Complete Blood Count LAB 05/12/25 Verified 04:00 Comprehensive LAB 05/12/25 Verified Metabolic Panel 04:00 Condition: Serious DANIELA 05/11/25 In Process 10:08 Acetaminophen Tablet PHA 05/11/25 Logged (Tylenol Tablet) 10:15 Hydrochlorothiazide PHA 05/12/25 Logged Tablet (Hydrochlorot 10:00 Metoprolol Tartrate PHA 05/11/25 Logged Tablet (Lopressor Ta 22:00 (Nf) Atorvastatin PHA 05/12/25 Logged Calcium (Lipitor) 10:00 (Nf) Losartan PHA 05/12/25 Logged Potassium 10:00 (Nf) Ondansetron PHA 05/11/25 Logged (Ondansetron Odt) 10:15 Date of Service: May 11, 2025 Billing Provider: DANNA JAIME Common Visit Codes: [id number] INP/OBS CARE (HIGH) DANNA JAIME May 11, 2025 10:41
[2025-05-11] MEDS: ACCU-CHEK COMFORT CURVE STRIP VI SCH (12:19)
[2025-05-11] MEDS: InsuLIN REG 1unit/0.01ml Soln (100units/ml) SC SCH ×2 (12:20→21:54)
[2025-05-11 18:17] VITALS: BP 138/81; PULSE 104; RESP 16; TEMP 98.5; O2SAT 96
[2025-05-11 18:45] VITALS: BP 138/81; PULSE 104; RESP 16; TEMP 98.5; O2SAT 96
[2025-05-11 20:00] VITALS: PULSE 97; RESP 18; O2SAT 99
[2025-05-11 21:00] VITALS: BP 130/77; PULSE 97; RESP 18; TEMP 98.2; O2SAT 99
[2025-05-11] MEDS: METOPROLOL TARTRATE 25 MG TAB PO SCH (21:55)
[2025-05-12 01:00] VITALS: BP 127/70; PULSE 89; RESP 18; TEMP 98.4; O2SAT 98
[2025-05-12 05:00] VITALS: BP 129/74; PULSE 80; RESP 18; TEMP 98.2; O2SAT 96
[2025-05-12 06:41] LABS: Hematocrit 32.8 % (41.0-53.0); Hemoglobin 11.0 g/dL (13.5-17.5); Mean Corpuscular Hemoglobin 29.4 pg (28.0-32.0); Mean Corpuscular Volume 87.4 fL (80.0-100.0); Nucleated Red Blood Cells % 0.0 %
[2025-05-12 07:01] LABS: Alanine Aminotransferase 35 U/L (7-40); Albumin 4.2 g/dL (3.2-4.8); Alkaline Phosphatase 108 U/L (46-116); Anion Gap 10 (5-15); BUN/Creatinine Ratio 14.6 (10.0-20.0); Bilirubin, Total 0.3 mg/dL (0.2-1.0); Calcium 10.1 mg/dL (8.7-10.4); Carbon Dioxide 27 mmol/L (20-31); Glucose 84 mg/dL (74-106); Potassium 4.3 mmol/L (3.5-5.1); Total Protein 7.2 g/dL (5.7-8.2)
[2025-05-12 07:10] LABS: Blood Urea Nitrogen 7 mg/dL (9-23); Chloride 94 mmol/L (98-107); Sodium 131 mmol/L (136-145)
[2025-05-12 09:00] VITALS: BP 134/81; PULSE 94; RESP 18; TEMP 98.1; O2SAT 96
[2025-05-12] MEDS: ATORVASTATIN 20 MG TAB PO SCH (11:21)
[2025-05-12] MEDS: hydroCHLOROthiazide 25 MG TAB PO SCH (11:21)
[2025-05-12] MEDS: LOSARTAN POTASSIUM 50 MG TAB PO SCH (11:22)
[2025-05-12 12:50] VITALS: BP 132/79; PULSE 111; RESP 19; TEMP 98.2; O2SAT 90
[2025-05-12 16:33] VITALS: BP 131/74; PULSE 93; RESP 18; TEMP 98.1; O2SAT 96
--- NOTE | 2025-05-12 17:25 | DVH ---
CTA Chest with intravenous contrast INDICATION: hemoptysis COMPARISON: XY CHEST PORTABLE on DOS: 05/11/25, XY CHEST TWO VIEWS ROUTINE on DOS: 10/26/24, XY CHEST XRAY 1 VIEW on DOS: 09/03/24, XY CHEST XRAY 1 VIEW on DOS: 09/03/24, CT CHEST WITHOUT CONTRAST on DOS: 09/03/24 TECHNIQUE: Multidetector spiral CTA of the chest was performed of the chest with intravenous contrast. PULMONARY ANGIOGRAPHY PROTOCOL was utilized using a bolus- tracking technique centered on the main pulmonary artery. Axial, coronal and sagittal multiplanar and MIP reformats were performed. Radiation Dose : 1. Chest: CTDI volume is 17.6 mGy. Dose-length product is 125.6 mGy*cm The dose indicators for CT are the volume Computed Tomography (CT) Dose Index (CTDIvol) and the Dose Length Product (DLP), and are measured in units of mGy and mGy-cm, respectively. These indicators are not patient dose, but values generated from the CT scanner acquisition factors. The report includes radiation exposure data for exposures received during this examination. Findings: Pulmonary artery: No pulmonary embolism. Mass extends into the mediastinum with persistent narrowing of the left bronchi, pulmonary artery and pulmonary veins. Lower neck: Normal thyroid. Lungs: Severely infiltrating left hilar mass measures approximately 7.6 x 6.4 cm.Persistent postobstructive atelectasis of the lingula.Diffuse interlobular septal thickening in the left upper lobe possibly representing lymphangitic spread of tumor. Heart/Vascular Structures: Cardiomegaly.Coronary artery calcifications.Vascular calcifications of the aorta.Median sternotomy.Right chest port in satisfactory position. Lymph Nodes: Redemonstration of Diffuse matted mediastinal and left supraclavicular lymphadenopathy. Pleura: Small left pleural effusion. Musculoskeletal: Lytic lesion in the left anterolateral 7th rib. Soft tissues: Normal. Upper abdomen: Limited portions of the upper abdomen are unremarkable. IMPRESSION: No pulmonary embolism. Redemonstration of a large left hilar mass with postobstructive atelectasis of the lingula. Diffuse interlobular septal thickening in the left upper lobe possibly representing lymphangitic spread of tumor. Small left pleural effusion. Lytic lesion in the left anterolateral 7th rib, unchanged Unchanged mediastinal and left supraclavicular adenopathy.
--- NOTE | 2025-05-12 18:00 | DVHPN2 ---
Subjective 69 year old male with h/o lung cancer came with hemoptysis Changes from previous H/P or p: Changes Eyes: No Pain, No Vision change, No Conjunctivae inflammation, No Eyelid inflammation, No Other, No Redness ENT: No Ear pain, No Ear discharge, No Nose pain, No Nose discharge, No Nose congestion, No Mouth pain, No Mouth swelling, No Throat pain, No Throat swelling, No Other Cardiovascular: No Chest Pain, No Palpitations, No Orthopnea, No Paroxysmal Noc. Dyspnea, No Edema, No Lt Headedness, No Other Respiratory: No Cough, No Dry; Shortness of breath; No SOB with excertion, No Wheezing, No Hemoptysis, No Pleuritic Pain, No Sputum; Other (Hemoptysis) Gastrointestinal: No Nausea, No Vomiting, No Abdominal Pain, No Diarrhea, No Constipation, No Melena, No Hematochezia, No Other Genitourinary: No Dysuria, No Frequency, No Incontinence, No Hematuria, No Retention, No Other Musculoskeletal: No other, No neck pain, No shoulder pain, No arm pain, No back pain, No hand pain, No leg pain, No foot pain Skin: No Rash, No Lesions, No Jaundice, No Bruising, No Other Objective Vitals Vital Signs Date Time Temp Pulse Resp B/P (MAP) Pulse Ox O2 Delivery O2 Flow Rate FiO2 05/12/25 16:33 98.1 93 18 131/74 (93) 96 98.1 05/11/25 20:00 Nasal Cannula* 2 28 Intake/Output Intake and Output 05/12/25 07:00 Intake Total 950 ml Output Total 1200 ml Balance -250 ml Intake Oral 200 ml IV Total 750 ml Output Urine Total 1200 ml # Voids 2 General Appearance: Alert, Oriented X3, Cooperative Lungs: Other (Left lung base dullness) Cardiovascular: Regular rate, Normal S1, Normal S2, No murmurs Abdomen: Normal bowel sounds, Soft, No tenderness Extremities: No edema Medications Current Medications Medications Dose Ordered Sig/Jeri Route Start Time Stop Time Status Last Admin Dose Admin Acetaminophen/ Hydrocodone Bitart 1 tab Q4HP PRN PO 05/11/25 10:15 Ondansetron HCl 4 mg Q4HP PRN IV 05/11/25 10:15 Docusate Sodium 100 mg BIDPRN PRN PO 05/11/25 10:15 Acetaminophen 650 mg Q6HP PRN PO 05/11/25 10:15 Hydrochlorothiazide 25 mg DAILY PO 05/12/25 10:00 05/12/25 11:21 25 MG Metoprolol Tartrate 25 mg BID PO 05/11/25 22:00 05/12/25 11:22 25 MG Atorvastatin Calcium 40 mg DAILY PO 05/12/25 10:00 05/12/25 11:21 40 MG Losartan Potassium 100 mg DAILY PO 05/12/25 10:00 05/12/25 11:22 100 MG Diagnostic Test (Pha) 1 strip ACHS 05/11/25 11:30 05/12/25 17:00 1 STRIP Insulin Human Regular HS SC 05/11/25 22:00 05/11/25 21:54 2 UNITS Insulin Human Regular AC SC 05/11/25 11:30 05/11/25 17:37 2 UNITS Dextrose 50 ml UD PRN IV 05/11/25 10:15 Laboratory Results Laboratory Tests 05/12/25 05:16 Chemistry Test 05/12/25 05:16 Albumin 4.2 g/dL (3.2-4.8) Calcium Level 10.1 mg/dL (8.7-10.4) Total Protein 7.2 g/dL (5.7-8.2) LFT Test 05/12/25 05:16 Alanine Aminotransferase (ALT) 35 U/L (7-40) Alkaline Phosphatase 108 U/L (46-116) Aspartate Amino Transferase (AST) 54 U/L (13-40) H Total Bilirubin 0.3 mg/dL (0.2-1.0) Urinalysis Test 05/11/25 09:28 Urine Color Colorless (Yellow) Urine Clarity Clear (Clear) Urine pH 7.0 (5.0-9.0) Urine Specific [place] 1.005 (1.001-1.035) Urine Protein Negative (Negative) Urine Ketones Negative (Negative) Urine Blood Negative /uL (Negative) Urine Nitrite Negative (Negative) Urine Bilirubin Negative (Negative) Urine Urobilinogen Normal mg/dL (Negative) Urine Leukocyte Esterase Negative /uL (Negative) Urine RBC None seen /hpf (0 - 3) Urine Microscopic WBC < 1 /HPF (0-3) Urine Squamous Epithelial Cells None seen /hpf (<5) Urine Bacteria None seen /hpf (None Seen) Urine Glucose Normal mg/dL (Normal) Microbiology Microbiology Date/Time Source Procedure Growth Status 05/11/25 14:12 Sputum Gram Stain Pending Resulted 05/11/25 14:12 Sputum Respiratory Culture - Preliminary Resulted Assessment/Plan Assessment/Plan Hemoptysis Left lung mass / Cancer No PE Pneumonia HTN DM2 Mixed hyperlipidemia PLAN: CTA lungs negative for PEAdd IV antibiotics for possible obstructive pneumonia Rocephin and Doxy O2 prn Med Nebs Metoprolol Losartan Full code Plan discussed with: Patient My Orders Orders - SKYLA JAMES MD Procedure Category Date Status Time Ct Angio Chest CT 05/12/25 Resulted Contrast 13:37 Date of Service: May 12, 2025 Billing Provider: SKYLA JAMES MD Common Visit Codes: [id number] INP/OBS CARE(HIGH) SKYLA JAMES MD May 12, 2025 18:00
[2025-05-12 21:00] VITALS: BP 140/80; PULSE 83; RESP 16; TEMP 98.2; O2SAT 97
[2025-05-12] MEDS: DOXYCYCLINE 100 MG TAB/CAP PO SCH (21:40)
--- NOTE | 2025-05-12 22:05 | DVHINCON2 ---
Date of service: May 12, 2025 Referring Physician ROBIN Moran Reason for Consultation Hemoptysis History of Present Illness A 69-year-old man with past medical history of stage 4 lung cancer, hypertension, diabetes, and hyperlipidemia, who was brought to the hospital by EMS on 05/11/25 due to coughing up blood. Patient woke up about 0500 on morning of presentation feeling short of breath and when he was coughing, he began having blood in his sputum. He states he went to the sink and continued to cough up blood. That is when he had his call EMS. He states he was coughing up blood clots and it was enough blood to fill up a coffee mug. He states he usually has a cough with phlegm, but never has had blood in it before. Patient was admitted for further care. Pulmonary consultation is requested for evaluation and management of hemoptysis in patient with stage 4 lung cancer. Review of Systems: 14-point review of systems negative unless otherwise noted above. Past Medical History: Stage 4 lung cancer, hypertension, diabetes, and hyperlipidemia Past Surgical History: CABG (Open heart surgery with AVR and bypass) Other (Port a cath placement) Medications: Reviewed. Allergies: No known drug allergies. Family History: Positive for OK. Social History: Former smoker. Quit (1 year ago). Previous alcohol use, quit 1 year ago. No illicit drug use. Family History: FH: heart attack G8 MOTHER Allergies: Coded Allergies: NO KNOWN ALLERGIES (Unverified , 06/28/24) Home Meds Reported Medications Ondansetron (Ondansetron Odt) 16 Mg Tab, 8 MG PO TIDP PRN, TAB 05/11/25 Losartan Potassium (Losartan Potassium) 100 Mg Tab, 100 MG PO DAILY, TAB 06/28/24 Metformin Hydrochloride (Metformin Hcl) 1,000 Mg Tab, 1000 MG PO BID, TAB 06/28/24 Metoprolol Tartrate (Metoprolol Tartrate) 25 Mg Tab, 25 MG PO BID, TAB 06/28/24 Atorvastatin Calcium (Lipitor) 40 Mg Tab, 40 MG PO DAILY, TAB 06/28/24 Hydrochlorothiazide (Hydrochlorothiazide) 25 Mg Tab, 25 MG PO DAILY, TAB 06/28/24 Aspirin (Aspirin) 325 Mg Tab, 325 MG PO DAILY, TAB 06/28/24 Discontinued Reported Medications Ondansetron HCl (Ondansetron) 4 Mg Tab, 8 MG PO DAILY 8/26/25 Current Medications Current Medications Medications (Trade) Dose Ordered Sig/Jeri Route PRN Reason Start Time Stop Time Status Last Admin Hydrochlorothiazide (hydroCHLOROthiazide TABLET) 25 mg DAILY PO 05/12/25 10:00 05/12/25 11:21 Atorvastatin Calcium (Lipitor) 40 mg DAILY PO 05/12/25 10:00 05/12/25 11:21 Losartan Potassium (Cozaar Tablet) 100 mg DAILY PO 05/12/25 10:00 05/12/25 11:22 Ceftriaxone Sodium 50 ml @ 100 mls/hr DAILY@09 IV 05/13/25 09:00 Doxycycline Monohydrate (Vibramycin Tablet) 100 mg Q12HR PO 05/12/25 22:00 05/12/25 21:40 Albuterol (Ventolin Medneb) 2.5 mg Q6HPRN PRN NEB SHORTNESS OF BREATH 05/12/25 18:00 Vital Signs Vital Signs Date Time Temp Pulse Resp B/P (MAP) Pulse Ox O2 Delivery O2 Flow Rate FiO2 05/12/25 21:41 95 140/80 05/12/25 16:33 98.1 18 96 98.1 05/12/25 08:30 Nasal Cannula* 2 28 Physical Exam Gen.: Patient lying in bed in no apparent distress. On supplemental oxygen. Head: Normocephalic, atraumatic. Eyes: EOMI/PERRLA. Ears: Normal hearing. Normal anatomy. Neck/trachea: Trachea midline, supple. Nose: Normal external anatomy. Mouth: Moist mucous membranes. Chest: Decreased air entry bilaterally. No wheezing or rhonchi. Cardiovascular: Positive S1, positive S2. Regular rate and rhythm. Abdomen: Positive bowel sounds in all 4 quadrants. Soft, non-tender, non- distended. : Deferred. Rectal: Deferred. Skin: Warm, dry. Intact. Extremities: 2+ radial pulses bilaterally. No lower extremity edema. Neuro: Awake, alert, oriented x3. No gross motor or sensory deficits. Cranial nerves II through XII intact. Gait not assessed. Labs/Diagnostic Data Labs Test 05/12/25 17:01 05/12/25 05:16 05/11/25 09:28 05/11/25 07:02 Range/Units POC Glucose 112 H 70-106 mg/dl White Blood Count 6.3 4.4-10.8 10^3/uL Red Blood Count 3.76 L 4.5-5.90 10^6/uL Hemoglobin 11.0 L 13.5-17.5 g/dL Hematocrit 32.8 L 41.0-53.0 % Mean Corpuscular Volume 87.4 80.0-100.0 fL Mean Corpuscular Hemoglobin 29.4 28.0-32.0 pg Mean Corpuscular Hemoglobin Concent 33.6 32.0-36.0 g/dL Red Cell Distribution Width 15.7 H 11.8-14.3 % Platelet Count 395 140-450 10^3/uL Mean Platelet Volume 6.7 L 6.9-10.8 fL Neutrophils (%) (Auto) 81.5 H 37.0-80.0 % Lymphocytes (%) (Auto) 6.1 L 10.0-50.0 % Monocytes (%) (Auto) 12.0 0.0-12.0 % Eosinophils (%) (Auto) 0.2 0.0-7.0 % Basophils (%) (Auto) 0.2 0.0-2.0 % Neutrophils # (Auto) 5.1 1.6-8.6 10 ^3/uL Lymphocytes # (Auto) 0.4 0.4-5.4 10 ^3/uL Monocytes # (Auto) 0.8 0-1.3 10 ^3/uL Eosinophils # (Auto) 0 0-0.8 10 ^3/uL Basophils # (Auto) 0 0-0.2 10 ^3/uL Nucleated Red Blood Cells 0.0 % Sodium Level 131 L 136-145 mmol/L Potassium Level 4.3 3.5-5.1 mmol/L Chloride Level 94 L 98-107 mmol/L Carbon Dioxide Level 27 20-31 mmol/L Anion Gap 10 5-15 Blood Urea Nitrogen 7 L 9-23 mg/dL Creatinine 0.48 L 0.700-1.30 mg/dL Glomerular Filtration Rate Calc 111 >90 mL/min BUN/Creatinine Ratio 14.6 10.0-20.0 Serum Glucose 84 74-106 mg/dL Calcium Level 10.1 8.7-10.4 mg/dL Total Bilirubin 0.3 0.2-1.0 mg/dL Aspartate Amino Transferase (AST) 54 H 13-40 U/L Alanine Aminotransferase (ALT) 35 7-40 U/L Alkaline Phosphatase 108 46-116 U/L Total Protein 7.2 5.7-8.2 g/dL Albumin 4.2 3.2-4.8 g/dL Urine Color Colorless Yellow Urine Clarity Clear Clear Urine pH 7.0 5.0-9.0 Urine Specific [place] 1.005 1.001-1.035 Urine Protein Negative Negative Urine Ketones Negative Negative Urine Blood Negative Negative /uL Urine Nitrite Negative Negative Urine Bilirubin Negative Negative Urine Urobilinogen Normal Negative mg/dL Urine Leukocyte Esterase Negative Negative /uL Urine RBC None seen 0 - 3 /hpf Urine Microscopic WBC < 1 0-3 /HPF Urine Squamous Epithelial Cells None seen <5 /hpf Urine Bacteria None seen None Seen /hpf Urine Glucose Normal Normal mg/dL Troponin I High Sensitivity 81 *H </=54 ng/L Microbiology Date/Time Source Procedure Growth Status 05/11/25 14:12 Sputum Gram Stain Pending Resulted 05/11/25 14:12 Sputum Respiratory Culture - Preliminary Resulted Assessment Impression: Acute hypoxic respiratory failure Dependence on supplemental oxygen Hemoptysis Stage 4 lung cancer. Hx of nicotine dependence Plan: Supplemental oxygen Titrate to keep O2 sats above 92%. CT angio negative for PE, redemonstration of a large left hilar mass with postobstructive atelectasis of the lingula. Diffuse interlobular septal thickening in the left upper lobe, possibly representing lymphangitic spread of tumor. Small left pleural effusion. Lytic lesion in the left anterolateral 7th rib, unchanged. Continue bronchodilators. Continue antibiotics Blood pressure control Quantify hemoptysis, monitor. Follow up Oncology recs Accu-Cheks, ISS. Monitor renal function. Monitor electrolytes. Supplement as necessary. Monitor ins and outs. DVT prophylaxis. Prognosis: Poor given patient's multiple co-morbidities. Rest of plan per hospitalist and other consultants. Thank you, ROBIN Moran, for allowing me to participate in this patient's care. Further recommendations will depend on the patient's clinical course. Please do not hesitate to contact me if you have any questions or concerns. This medical document was created using an electronic medical record system with [employer] system. Although these documentations are being carefully reviewed, there may still be some phonetic and typographical changes. The errors are purely typographical, due to imperfection on the software program, and do not reflect any compromise in the patient's medical care. Plan discussed with: Other (RN/MD) Visit Coding Pulmonary Billing Provider: ROBERT DIAZ MD Date of Service if different f: May 12, 2025 Common Visit Codes: [id number] INP/OBS CARE (HIGH) ROBERT DIAZ MD May 12, 2025 22:05
[2025-05-13] VITALS (10 sets, daily range): BP systolic 112–167; BP diastolic 64–82; PULSE 79–95; RESP 17–20; TEMP 97.8–98.4; O2SAT 95–98
[2025-05-13 05:54] LABS: Hematocrit 34.2 % (41.0-53.0); Hemoglobin 11.3 g/dL (13.5-17.5); Mean Corpuscular Hemoglobin 28.7 pg (28.0-32.0); Mean Corpuscular Volume 87.2 fL (80.0-100.0); Nucleated Red Blood Cells % 0.0 %
[2025-05-13 06:16] LABS: Alanine Aminotransferase 31 U/L (7-40); Albumin 4.0 g/dL (3.2-4.8); Alkaline Phosphatase 105 U/L (46-116); Anion Gap 9 (5-15); BUN/Creatinine Ratio 15.8 (10.0-20.0); Calcium 10.4 mg/dL (8.7-10.4); Carbon Dioxide 27 mmol/L (20-31); Glucose 97 mg/dL (74-106); Potassium 3.8 mmol/L (3.5-5.1); Total Protein 7.2 g/dL (5.7-8.2)
[2025-05-13 06:17] LABS: Bilirubin, Total 0.5 mg/dL (0.2-1.0); Blood Urea Nitrogen 6 mg/dL (9-23); Chloride 90 mmol/L (98-107); Magnesium 1.6 mg/dL (1.6-2.6); Sodium 126 mmol/L (136-145)
[2025-05-13] MEDS: MAGNESIUM SULFATE 1GM/100ML 100 ML IV SCH (11:48)
--- NOTE | 2025-05-13 18:14 | DVHPN2 ---
Subjective Still has hemoptysis Changes from previous H/P or p: Changes Eyes: No Pain, No Vision change, No Conjunctivae inflammation, No Eyelid inflammation, No Other, No Redness ENT: No Ear pain, No Ear discharge, No Nose pain, No Nose discharge, No Nose congestion, No Mouth pain, No Mouth swelling, No Throat pain, No Throat swelling, No Other Cardiovascular: No Chest Pain, No Palpitations, No Orthopnea, No Paroxysmal Noc. Dyspnea, No Edema, No Lt Headedness, No Other Respiratory: No Cough, No Dry; Shortness of breath; No SOB with excertion, No Wheezing, No Hemoptysis, No Pleuritic Pain, No Sputum; Other (Hemoptysis) Gastrointestinal: No Nausea, No Vomiting, No Abdominal Pain, No Diarrhea, No Constipation, No Melena, No Hematochezia, No Other Genitourinary: No Dysuria, No Frequency, No Incontinence, No Hematuria, No Retention, No Other Musculoskeletal: No other, No neck pain, No shoulder pain, No arm pain, No back pain, No hand pain, No leg pain, No foot pain Skin: No Rash, No Lesions, No Jaundice, No Bruising, No Other Objective Vitals Vital Signs Date Time Temp Pulse Resp B/P (MAP) Pulse Ox O2 Delivery O2 Flow Rate FiO2 05/13/25 16:45 98.0 95 19 127/76 (93) 96 98.0 05/13/25 08:30 Nasal Cannula* 2 28 Intake/Output Intake and Output 05/13/25 07:00 Intake Total 2680 ml Output Total 375 ml Balance 2305 ml Intake Oral 2680 ml Output Urine Total 375 ml # Voids 3 General Appearance: Alert, Oriented X3, Cooperative Lungs: Other (Left lung base dullness) Cardiovascular: Regular rate, Normal S1, Normal S2, No murmurs Abdomen: Normal bowel sounds, Soft, No tenderness Extremities: No edema Medications Current Medications Medications Dose Ordered Sig/Jeri Route Start Time Stop Time Status Last Admin Dose Admin Acetaminophen/ Hydrocodone Bitart 1 tab Q4HP PRN PO 05/11/25 10:15 Ondansetron HCl 4 mg Q4HP PRN IV 05/11/25 10:15 Docusate Sodium 100 mg BIDPRN PRN PO 05/11/25 10:15 Acetaminophen 650 mg Q6HP PRN PO 05/11/25 10:15 Hydrochlorothiazide 25 mg DAILY PO 05/12/25 10:00 05/13/25 09:36 25 MG Metoprolol Tartrate 25 mg BID PO 05/11/25 22:00 05/13/25 09:37 25 MG Atorvastatin Calcium 40 mg DAILY PO 05/12/25 10:00 05/13/25 09:37 40 MG Losartan Potassium 100 mg DAILY PO 05/12/25 10:00 05/13/25 09:36 100 MG Diagnostic Test (Pha) 1 strip ACHS 05/11/25 11:30 05/13/25 16:20 1 STRIP Insulin Human Regular HS SC 05/11/25 22:00 05/12/25 21:46 2 UNITS Insulin Human Regular AC SC 05/11/25 11:30 05/13/25 11:53 2 UNITS Dextrose 50 ml UD PRN IV 05/11/25 10:15 Ceftriaxone Sodium 50 ml @ 100 mls/hr DAILY@09 IV 05/13/25 09:00 05/13/25 09:35 100 MLS/HR Doxycycline Monohydrate 100 mg Q12HR PO 05/12/25 22:00 05/13/25 09:36 100 MG Albuterol 2.5 mg Q6HPRN PRN NEB 05/12/25 18:00 Laboratory Results Laboratory Tests 05/13/25 05:03 Chemistry Test 05/13/25 05:03 Albumin 4.0 g/dL (3.2-4.8) Calcium Level 10.4 mg/dL (8.7-10.4) Magnesium Level 1.6 mg/dL (1.6-2.6) Total Protein 7.2 g/dL (5.7-8.2) LFT Test 05/13/25 05:03 Alanine Aminotransferase (ALT) 31 U/L (7-40) Alkaline Phosphatase 105 U/L (46-116) Aspartate Amino Transferase (AST) 51 U/L (13-40) H Total Bilirubin 0.5 mg/dL (0.2-1.0) Urinalysis Test 05/11/25 09:28 Urine Color Colorless (Yellow) Urine Clarity Clear (Clear) Urine pH 7.0 (5.0-9.0) Urine Specific [place] 1.005 (1.001-1.035) Urine Protein Negative (Negative) Urine Ketones Negative (Negative) Urine Blood Negative /uL (Negative) Urine Nitrite Negative (Negative) Urine Bilirubin Negative (Negative) Urine Urobilinogen Normal mg/dL (Negative) Urine Leukocyte Esterase Negative /uL (Negative) Urine RBC None seen /hpf (0 - 3) Urine Microscopic WBC < 1 /HPF (0-3) Urine Squamous Epithelial Cells None seen /hpf (<5) Urine Bacteria None seen /hpf (None Seen) Urine Glucose Normal mg/dL (Normal) Microbiology Microbiology Date/Time Source Procedure Growth Status 05/11/25 14:12 Sputum Gram Stain - Final Resulted 05/11/25 14:12 Sputum Respiratory Culture - Preliminary Resulted Assessment/Plan Assessment/Plan Hemoptysis Left lung mass / Cancer No PE Pneumonia HTN DM2 Mixed hyperlipidemia PLAN: CTA lungs negative for PEAdd IV antibiotics for possible obstructive pneumonia Rocephin and Doxy O2 prn Med Nebs Metoprolol Losartan Full code 05/13/25: IV antibiotics Rocephin and doxycycline Hypokalemia and hypomagnesemia: Replace O2 Med Nebs Plan discussed with: Patient Date of Service: May 13, 2025 Billing Provider: SKYLA JAMES MD Common Visit Codes: [id number] INP/OBS CARE(HIGH) SKYLA JAMES MD May 13, 2025 18:14
--- NOTE | 2025-05-13 23:48 | DVHPN2 ---
Subjective DOS: 05/13/2025 Patient seen and examined at bedside. Remains on supplemental oxygen Overnight events reviewed. Changes from previous H/P or p: No Changes Eyes: No Pain, No Vision change, No Conjunctivae inflammation, No Eyelid inflammation, No Other, No Redness ENT: No Ear pain, No Ear discharge, No Nose pain, No Nose discharge, No Nose congestion, No Mouth pain, No Mouth swelling, No Throat pain, No Throat swelling, No Other Cardiovascular: No Chest Pain, No Palpitations, No Orthopnea, No Paroxysmal Noc. Dyspnea, No Edema, No Lt Headedness, No Other Respiratory: No Cough, No Dry; Shortness of breath; No SOB with excertion, No Wheezing, No Hemoptysis, No Pleuritic Pain, No Sputum; Other (Hemoptysis) Gastrointestinal: No Nausea, No Vomiting, No Abdominal Pain, No Diarrhea, No Constipation, No Melena, No Hematochezia, No Other Genitourinary: No Dysuria, No Frequency, No Incontinence, No Hematuria, No Retention, No Other Musculoskeletal: No other, No neck pain, No shoulder pain, No arm pain, No back pain, No hand pain, No leg pain, No foot pain Skin: No Rash, No Lesions, No Jaundice, No Bruising, No Other Objective Vitals Vital Signs Date Time Temp Pulse Resp B/P (MAP) Pulse Ox O2 Delivery O2 Flow Rate FiO2 05/13/25 21:27 93 112/68 05/13/25 21:00 98.2 20 98 98.2 05/13/25 20:00 Nasal Cannula* 2 28 Intake/Output Intake and Output 05/13/25 07:00 Intake Total 2680 ml Output Total 375 ml Balance 2305 ml Intake Oral 2680 ml Output Urine Total 375 ml # Voids 3 Exam Gen.: Patient lying in bed in no apparent distress. On supplemental oxygen. Head: Normocephalic, atraumatic. Eyes: EOMI/PERRLA. Ears: Normal hearing. Normal anatomy. Neck/trachea: Trachea midline, supple. Nose: Normal external anatomy. Mouth: Moist mucous membranes. Chest: Decreased air entry bilaterally. No wheezing or rhonchi. Cardiovascular: Positive S1, positive S2. Regular rate and rhythm. Abdomen: Positive bowel sounds in all 4 quadrants. Soft, non-tender, non- distended. : Deferred. Rectal: Deferred. Skin: Warm, dry. Intact. Extremities: 2+ radial pulses bilaterally. No lower extremity edema. Neuro: Awake, alert, oriented x3. No gross motor or sensory deficits. Cranial nerves II through XII intact. Gait not assessed. General Appearance: Alert, Oriented X3, Cooperative Lungs: Other (Left lung base dullness) Cardiovascular: Regular rate, Normal S1, Normal S2, No murmurs Abdomen: Normal bowel sounds, Soft, No tenderness Extremities: No edema Medications Current Medications Medications Dose Ordered Sig/Jeri Route Start Time Stop Time Status Last Admin Dose Admin Acetaminophen/ Hydrocodone Bitart 1 tab Q4HP PRN PO 05/11/25 10:15 Ondansetron HCl 4 mg Q4HP PRN IV 05/11/25 10:15 Docusate Sodium 100 mg BIDPRN PRN PO 05/11/25 10:15 Acetaminophen 650 mg Q6HP PRN PO 05/11/25 10:15 Hydrochlorothiazide 25 mg DAILY PO 05/12/25 10:00 05/13/25 09:36 25 MG Metoprolol Tartrate 25 mg BID PO 05/11/25 22:00 05/13/25 21:27 25 MG Atorvastatin Calcium 40 mg DAILY PO 05/12/25 10:00 05/13/25 09:37 40 MG Losartan Potassium 100 mg DAILY PO 05/12/25 10:00 05/13/25 09:36 100 MG Diagnostic Test (Pha) 1 strip ACHS 05/11/25 11:30 05/13/25 21:30 1 STRIP Insulin Human Regular HS SC 05/11/25 22:00 05/12/25 21:46 2 UNITS Insulin Human Regular AC SC 05/11/25 11:30 05/13/25 11:53 2 UNITS Dextrose 50 ml UD PRN IV 05/11/25 10:15 Ceftriaxone Sodium 50 ml @ 100 mls/hr DAILY@09 IV 05/13/25 09:00 05/13/25 09:35 100 MLS/HR Doxycycline Monohydrate 100 mg Q12HR PO 05/12/25 22:00 05/13/25 21:27 100 MG Albuterol 2.5 mg Q6HPRN PRN NEB 05/12/25 18:00 Laboratory Results Laboratory Tests 05/13/25 05:03 Chemistry Test 05/13/25 05:03 Albumin 4.0 g/dL (3.2-4.8) Calcium Level 10.4 mg/dL (8.7-10.4) Magnesium Level 1.6 mg/dL (1.6-2.6) Total Protein 7.2 g/dL (5.7-8.2) LFT Test 05/13/25 05:03 Alanine Aminotransferase (ALT) 31 U/L (7-40) Alkaline Phosphatase 105 U/L (46-116) Aspartate Amino Transferase (AST) 51 U/L (13-40) H Total Bilirubin 0.5 mg/dL (0.2-1.0) Urinalysis Test 05/11/25 09:28 Urine Color Colorless (Yellow) Urine Clarity Clear (Clear) Urine pH 7.0 (5.0-9.0) Urine Specific [place] 1.005 (1.001-1.035) Urine Protein Negative (Negative) Urine Ketones Negative (Negative) Urine Blood Negative /uL (Negative) Urine Nitrite Negative (Negative) Urine Bilirubin Negative (Negative) Urine Urobilinogen Normal mg/dL (Negative) Urine Leukocyte Esterase Negative /uL (Negative) Urine RBC None seen /hpf (0 - 3) Urine Microscopic WBC < 1 /HPF (0-3) Urine Squamous Epithelial Cells None seen /hpf (<5) Urine Bacteria None seen /hpf (None Seen) Urine Glucose Normal mg/dL (Normal) Microbiology Microbiology Date/Time Source Procedure Growth Status 05/11/25 14:12 Sputum Gram Stain - Final Resulted 05/11/25 14:12 Sputum Respiratory Culture - Preliminary Resulted Assessment/Plan Assessment/Plan Impression: Acute hypoxic respiratory failure Dependence on supplemental oxygen Hemoptysis Stage 4 lung cancer. Hx of nicotine dependence Events: Remains on supplemental oxygen, 2 LPM NC Taper O2 as tolerated Continue bronchodilators Continue antibiotics Follow up sputum culture results Antitussive for cough Continue to monitor hemoptysis. Incentive spirometry Accu-Cheks, ISS Monitor renal function. Monitor electrolytes. Supplement as necessary. Magnesium supplementation Labs and imaging reviewed. Rest of plan as noted below. Plan: Supplemental oxygen Titrate to keep O2 sats above 92%. CT angio negative for PE, redemonstration of a large left hilar mass with postobstructive atelectasis of the lingula. Diffuse interlobular septal thickening in the left upper lobe, possibly representing lymphangitic spread of tumor. Small left pleural effusion. Lytic lesion in the left anterolateral 7th rib, unchanged. Continue bronchodilators. Continue antibiotics Blood pressure control Quantify hemoptysis, monitor. Follow up Oncology recs Accu-Cheks, ISS. Monitor renal function. Monitor electrolytes. Supplement as necessary. Monitor ins and outs. DVT prophylaxis. Prognosis: Poor given patient's multiple co-morbidities. Rest of plan per hospitalist and other consultants. Thank you, TRANSACTIONAL ATTORNEY Dean, for allowing me to participate in this patient's care. Further recommendations will depend on the patient's clinical course. Please do not hesitate to contact me if you have any questions or concerns. This medical document was created using an electronic medical record system with [employer] dictation system. Although these documentations are being carefully reviewed, there may still be some phonetic and typographical changes. The errors are purely typographical, due to imperfection on the software program, and do not reflect any compromise in the patient's medical care. Plan discussed with: Patient, Other (RN Dimas) Visit Coding Pulmonary Billing Provider: ROBERT DIAZ MD Date of Service if different f: May 13, 2025 Common Visit Codes: [id number] INP/OBS CARE(HIGH) ROBERT DIAZ MD May 13, 2025 23:48
[2025-05-14] VITALS (11 sets, daily range): BP systolic 108–132; BP diastolic 59–80; PULSE 84–105; RESP 17–20; TEMP 97.4–98.7; O2SAT 94–100
[2025-05-14 05:37] LABS: Alanine Aminotransferase 35 U/L (7-40); Albumin 4.2 g/dL (3.2-4.8); Alkaline Phosphatase 110 U/L (46-116); Anion Gap 7 (5-15); BUN/Creatinine Ratio 12.5 (10.0-20.0); Bilirubin, Total 0.6 mg/dL (0.2-1.0); Carbon Dioxide 29 mmol/L (20-31); Glucose 103 mg/dL (74-106); Potassium 4.6 mmol/L (3.5-5.1); Total Protein 7.3 g/dL (5.7-8.2)
[2025-05-14 05:39] LABS: Blood Urea Nitrogen 7 mg/dL (9-23); Calcium 10.5 mg/dL (8.7-10.4); Chloride 90 mmol/L (98-107); Magnesium 1.6 mg/dL (1.6-2.6); Sodium 126 mmol/L (136-145)
[2025-05-14] MEDS: ALBUTEROL SULF 2.5 MG/0.5ML(0.5%) NEB SOLN NEB PRN (07:56)
--- NOTE | 2025-05-14 13:47 | DVHPN2 ---
Subjective He feels better Hemoptysis is better He is still coughing up some dark phlegm Changes from previous H/P or p: Changes Eyes: No Pain, No Vision change, No Conjunctivae inflammation, No Eyelid inflammation, No Other, No Redness ENT: No Ear pain, No Ear discharge, No Nose pain, No Nose discharge, No Nose congestion, No Mouth pain, No Mouth swelling, No Throat pain, No Throat swelling, No Other Cardiovascular: No Chest Pain, No Palpitations, No Orthopnea, No Paroxysmal Noc. Dyspnea, No Edema, No Lt Headedness, No Other Respiratory: No Cough, No Dry; Shortness of breath; No SOB with excertion, No Wheezing, No Hemoptysis, No Pleuritic Pain, No Sputum; Other (Hemoptysis) Gastrointestinal: No Nausea, No Vomiting, No Abdominal Pain, No Diarrhea, No Constipation, No Melena, No Hematochezia, No Other Genitourinary: No Dysuria, No Frequency, No Incontinence, No Hematuria, No Retention, No Other Musculoskeletal: No other, No neck pain, No shoulder pain, No arm pain, No back pain, No hand pain, No leg pain, No foot pain Skin: No Rash, No Lesions, No Jaundice, No Bruising, No Other Objective Vitals Vital Signs Date Time Temp Pulse Resp B/P (MAP) Pulse Ox O2 Delivery O2 Flow Rate FiO2 05/14/25 12:30 98.1 84 18 108/59 (75) 99 98.1 05/14/25 10:06 Nasal Cannula* 2 28 Intake/Output Intake and Output 05/14/25 07:00 Intake Total 1330 ml Output Total 700 ml Balance 630 ml Intake Oral 1080 ml IV Total 250 ml Output Urine Total 700 ml # Voids 4 General Appearance: Alert, Oriented X3, Cooperative Lungs: Other (Left lung base dullness) Cardiovascular: Regular rate, Normal S1, Normal S2, No murmurs Abdomen: Normal bowel sounds, Soft, No tenderness Extremities: No edema Medications Current Medications Medications Dose Ordered Sig/Jeri Route Start Time Stop Time Status Last Admin Dose Admin Acetaminophen/ Hydrocodone Bitart 1 tab Q4HP PRN PO 05/11/25 10:15 Ondansetron HCl 4 mg Q4HP PRN IV 05/11/25 10:15 Docusate Sodium 100 mg BIDPRN PRN PO 05/11/25 10:15 Acetaminophen 650 mg Q6HP PRN PO 05/11/25 10:15 Hydrochlorothiazide 25 mg DAILY PO 05/12/25 10:00 05/14/25 08:44 25 MG Metoprolol Tartrate 25 mg BID PO 05/11/25 22:00 05/14/25 08:45 25 MG Atorvastatin Calcium 40 mg DAILY PO 05/12/25 10:00 05/14/25 08:44 40 MG Losartan Potassium 100 mg DAILY PO 05/12/25 10:00 05/14/25 08:44 100 MG Diagnostic Test (Pha) 1 strip ACHS 05/11/25 11:30 05/14/25 11:13 1 STRIP Insulin Human Regular HS SC 05/11/25 22:00 05/12/25 21:46 2 UNITS Insulin Human Regular AC SC 05/11/25 11:30 05/14/25 11:16 3 UNITS Dextrose 50 ml UD PRN IV 05/11/25 10:15 Ceftriaxone Sodium 50 ml @ 100 mls/hr DAILY@09 IV 05/13/25 09:00 05/14/25 08:40 100 MLS/HR Doxycycline Monohydrate 100 mg Q12HR PO 05/12/25 22:00 05/14/25 08:45 100 MG Albuterol 2.5 mg Q6HPRN PRN NEB 05/12/25 18:00 05/14/25 07:56 2.5 MG Laboratory Results Laboratory Tests 05/13/25 05:03 05/14/25 04:57 Chemistry Test 05/14/25 04:57 Albumin 4.2 g/dL (3.2-4.8) Calcium Level 10.5 mg/dL (8.7-10.4) H Magnesium Level 1.6 mg/dL (1.6-2.6) Total Protein 7.3 g/dL (5.7-8.2) LFT Test 05/14/25 04:57 Alanine Aminotransferase (ALT) 35 U/L (7-40) Alkaline Phosphatase 110 U/L (46-116) Aspartate Amino Transferase (AST) 48 U/L (13-40) H Total Bilirubin 0.6 mg/dL (0.2-1.0) Urinalysis Test 05/11/25 09:28 Urine Color Colorless (Yellow) Urine Clarity Clear (Clear) Urine pH 7.0 (5.0-9.0) Urine Specific [place] 1.005 (1.001-1.035) Urine Protein Negative (Negative) Urine Ketones Negative (Negative) Urine Blood Negative /uL (Negative) Urine Nitrite Negative (Negative) Urine Bilirubin Negative (Negative) Urine Urobilinogen Normal mg/dL (Negative) Urine Leukocyte Esterase Negative /uL (Negative) Urine RBC None seen /hpf (0 - 3) Urine Microscopic WBC < 1 /HPF (0-3) Urine Squamous Epithelial Cells None seen /hpf (<5) Urine Bacteria None seen /hpf (None Seen) Urine Glucose Normal mg/dL (Normal) Microbiology Microbiology Date/Time Source Procedure Growth Status 05/11/25 14:12 Sputum Gram Stain - Final Resulted 05/11/25 14:12 Sputum Respiratory Culture - Preliminary Resulted Assessment/Plan Assessment/Plan Hemoptysis Left lung mass / Cancer No PE Pneumonia HTN DM2 Mixed hyperlipidemia PLAN: CTA lungs negative for PEAdd IV antibiotics for possible obstructive pneumonia Rocephin and Doxy O2 prn Med Nebs Metoprolol Losartan Full code 05/13/25: IV antibiotics Rocephin and doxycycline Hypokalemia and hypomagnesemia: Replace O2 Med Nebs 05/14/2025: Continue the IV antibiotics Oxygen Med neb treatments Monitor in the hospital 1 more day Plan discussed with: Patient Date of Service: May 14, 2025 Billing Provider: SKYLA JAMES MD Common Visit Codes: [id number] INP/OBS CARE(HIGH) SKYLA JAMES MD May 14, 2025 13:46
[2025-05-14] MEDS: MAGNESIUM SULFATE 1GM/100ML 100 ML IV SCH (14:06)
--- NOTE | 2025-05-14 23:37 | DVHPN2 ---
Subjective DOS: 05/14/2025 Patient seen and examined at bedside. Remains on supplemental oxygen Overnight events reviewed. Changes from previous H/P or p: No Changes Eyes: No Pain, No Vision change, No Conjunctivae inflammation, No Eyelid inflammation, No Other, No Redness ENT: No Ear pain, No Ear discharge, No Nose pain, No Nose discharge, No Nose congestion, No Mouth pain, No Mouth swelling, No Throat pain, No Throat swelling, No Other Cardiovascular: No Chest Pain, No Palpitations, No Orthopnea, No Paroxysmal Noc. Dyspnea, No Edema, No Lt Headedness, No Other Respiratory: No Cough, No Dry; Shortness of breath; No SOB with excertion, No Wheezing, No Hemoptysis, No Pleuritic Pain, No Sputum; Other (Hemoptysis) Gastrointestinal: No Nausea, No Vomiting, No Abdominal Pain, No Diarrhea, No Constipation, No Melena, No Hematochezia, No Other Genitourinary: No Dysuria, No Frequency, No Incontinence, No Hematuria, No Retention, No Other Musculoskeletal: No other, No neck pain, No shoulder pain, No arm pain, No back pain, No hand pain, No leg pain, No foot pain Skin: No Rash, No Lesions, No Jaundice, No Bruising, No Other Objective Vitals Vital Signs Date Time Temp Pulse Resp B/P (MAP) Pulse Ox O2 Delivery O2 Flow Rate FiO2 05/14/25 21:42 94 132/76 05/14/25 21:00 98.7 18 100 98.7 05/14/25 20:00 Nasal Cannula* 2 28 Intake/Output Intake and Output 05/14/25 07:00 Intake Total 1330 ml Output Total 700 ml Balance 630 ml Intake Oral 1080 ml IV Total 250 ml Output Urine Total 700 ml # Voids 4 Exam Gen.: Patient lying in bed in no apparent distress. On supplemental oxygen. Head: Normocephalic, atraumatic. Eyes: EOMI/PERRLA. Ears: Normal hearing. Normal anatomy. Neck/trachea: Trachea midline, supple. Nose: Normal external anatomy. Mouth: Moist mucous membranes. Chest: Decreased air entry bilaterally. No wheezing or rhonchi. Cardiovascular: Positive S1, positive S2. Regular rate and rhythm. Abdomen: Positive bowel sounds in all 4 quadrants. Soft, non-tender, non- distended. : Deferred. Rectal: Deferred. Skin: Warm, dry. Intact. Extremities: 2+ radial pulses bilaterally. No lower extremity edema. Neuro: Awake, alert, oriented x3. No gross motor or sensory deficits. Cranial nerves II through XII intact. Gait not assessed. General Appearance: Alert, Oriented X3, Cooperative Lungs: Other (Left lung base dullness) Cardiovascular: Regular rate, Normal S1, Normal S2, No murmurs Abdomen: Normal bowel sounds, Soft, No tenderness Extremities: No edema Medications Current Medications Medications Dose Ordered Sig/Jeri Route Start Time Stop Time Status Last Admin Dose Admin Acetaminophen/ Hydrocodone Bitart 1 tab Q4HP PRN PO 05/11/25 10:15 Ondansetron HCl 4 mg Q4HP PRN IV 05/11/25 10:15 Docusate Sodium 100 mg BIDPRN PRN PO 05/11/25 10:15 Acetaminophen 650 mg Q6HP PRN PO 05/11/25 10:15 Hydrochlorothiazide 25 mg DAILY PO 05/12/25 10:00 05/14/25 08:44 25 MG Metoprolol Tartrate 25 mg BID PO 05/11/25 22:00 05/14/25 21:42 25 MG Atorvastatin Calcium 40 mg DAILY PO 05/12/25 10:00 05/14/25 08:44 40 MG Losartan Potassium 100 mg DAILY PO 05/12/25 10:00 05/14/25 08:44 100 MG Diagnostic Test (Pha) 1 strip ACHS 05/11/25 11:30 05/14/25 21:45 1 STRIP Insulin Human Regular HS SC 05/11/25 22:00 05/12/25 21:46 2 UNITS Insulin Human Regular AC SC 05/11/25 11:30 05/14/25 16:33 3 UNITS Dextrose 50 ml UD PRN IV 05/11/25 10:15 Ceftriaxone Sodium 50 ml @ 100 mls/hr DAILY@09 IV 05/13/25 09:00 05/14/25 08:40 100 MLS/HR Doxycycline Monohydrate 100 mg Q12HR PO 05/12/25 22:00 05/14/25 21:42 100 MG Albuterol 2.5 mg Q6HPRN PRN NEB 05/12/25 18:00 05/14/25 19:42 2.5 MG Laboratory Results Laboratory Tests 05/13/25 05:03 05/14/25 04:57 Chemistry Test 05/14/25 04:57 Albumin 4.2 g/dL (3.2-4.8) Calcium Level 10.5 mg/dL (8.7-10.4) H Magnesium Level 1.6 mg/dL (1.6-2.6) Total Protein 7.3 g/dL (5.7-8.2) LFT Test 05/14/25 04:57 Alanine Aminotransferase (ALT) 35 U/L (7-40) Alkaline Phosphatase 110 U/L (46-116) Aspartate Amino Transferase (AST) 48 U/L (13-40) H Total Bilirubin 0.6 mg/dL (0.2-1.0) Urinalysis Test 05/11/25 09:28 Urine Color Colorless (Yellow) Urine Clarity Clear (Clear) Urine pH 7.0 (5.0-9.0) Urine Specific [place] 1.005 (1.001-1.035) Urine Protein Negative (Negative) Urine Ketones Negative (Negative) Urine Blood Negative /uL (Negative) Urine Nitrite Negative (Negative) Urine Bilirubin Negative (Negative) Urine Urobilinogen Normal mg/dL (Negative) Urine Leukocyte Esterase Negative /uL (Negative) Urine RBC None seen /hpf (0 - 3) Urine Microscopic WBC < 1 /HPF (0-3) Urine Squamous Epithelial Cells None seen /hpf (<5) Urine Bacteria None seen /hpf (None Seen) Urine Glucose Normal mg/dL (Normal) Microbiology Microbiology Date/Time Source Procedure Growth Status 05/11/25 14:12 Sputum Gram Stain - Final Resulted 05/11/25 14:12 Sputum Respiratory Culture - Preliminary Resulted Assessment/Plan Assessment/Plan Impression: Acute hypoxic respiratory failure Dependence on supplemental oxygen Hemoptysis Stage 4 lung cancer. Hx of nicotine dependence Events: Remains on supplemental oxygen, 2 LPM NC Taper O2 as tolerated Continue bronchodilators Continue antibiotics Follow up sputum culture results Antitussive for cough Continue steroids Continue to monitor hemoptysis, improving. Incentive spirometry Accu-Cheks, ISS Monitor renal function. Monitor electrolytes. Supplement as necessary. Magnesium supplementation Labs and imaging reviewed. Rest of plan as noted below. Plan: Supplemental oxygen Titrate to keep O2 sats above 92%. CT angio negative for PE, redemonstration of a large left hilar mass with postobstructive atelectasis of the lingula. Diffuse interlobular septal thickening in the left upper lobe, possibly representing lymphangitic spread of tumor. Small left pleural effusion. Lytic lesion in the left anterolateral 7th rib, unchanged. Continue bronchodilators. Continue antibiotics Blood pressure control Quantify hemoptysis, monitor. Follow up Oncology recs Accu-Cheks, ISS. Monitor renal function. Monitor electrolytes. Supplement as necessary. Monitor ins and outs. DVT prophylaxis. Prognosis: Poor given patient's multiple co-morbidities. Rest of plan per hospitalist and other consultants. Thank you, MARKETING PRODUCTION SPECIALIST Dean, for allowing me to participate in this patient's care. Further recommendations will depend on the patient's clinical course. Please do not hesitate to contact me if you have any questions or concerns. This medical document was created using an electronic medical record system with [employer] dictation system. Although these documentations are being carefully reviewed, there may still be some phonetic and typographical changes. The errors are purely typographical, due to imperfection on the software program, and do not reflect any compromise in the patient's medical care. Plan discussed with: Patient, Other (RN) My Orders Orders - ROBERT DIAZ MD Procedure Category Date Status Time Abg W/ Co-Ox RT 05/14/25 Logged 17:14 Visit Coding Pulmonary Billing Provider: ROBERT DIAZ MD Date of Service if different f: May 14, 2025 Common Visit Codes: [id number] INP/OBS CARE(HIGH) ROBERT DIAZ MD May 14, 2025 23:37
[2025-05-15] VITALS (8 sets, daily range): BP systolic 106–124; BP diastolic 63–82; PULSE 88–99; RESP 16–18; TEMP 36.9; O2SAT 92–96
[2025-05-15] MEDS ORDERED: LEVO500T91 PO (15:09)
[2025-05-15] MEDS ORDERED: DOXY1CAP57 PO (15:09)
--- NOTE | 2025-05-15 15:09 | DVHDS2 ---
Discharge Summary Date of Admission May 11, 2025 at 10:08 Date of Discharge: May 15, 2025 Labs/Diagnostic Data: Laboratory Results Test 05/15/25 10:59 05/14/25 04:57 05/13/25 05:03 05/11/25 09:28 POC Glucose 121 mg/dl (70-106) Sodium Level 126 mmol/L (136-145) Potassium Level 4.6 mmol/L (3.5-5.1) Chloride Level 90 mmol/L (98-107) Carbon Dioxide Level 29 mmol/L (20-31) Anion Gap 7 (5-15) Blood Urea Nitrogen 7 mg/dL (9-23) Creatinine 0.56 mg/dL (0.700-1.30) Glomerular Filtration Rate Calc 106 mL/min (>90) BUN/Creatinine Ratio 12.5 (10.0-20.0) Serum Glucose 103 mg/dL (74-106) Calcium Level 10.5 mg/dL (8.7-10.4) Magnesium Level 1.6 mg/dL (1.6-2.6) Total Bilirubin 0.6 mg/dL (0.2-1.0) Aspartate Amino Transferase (AST) 48 U/L (13-40) Alanine Aminotransferase (ALT) 35 U/L (7-40) Alkaline Phosphatase 110 U/L (46-116) Total Protein 7.3 g/dL (5.7-8.2) Albumin 4.2 g/dL (3.2-4.8) White Blood Count 6.3 10^3/uL (4.4-10.8) Red Blood Count 3.93 10^6/uL (4.5-5.90) Hemoglobin 11.3 g/dL (13.5-17.5) Hematocrit 34.2 % (41.0-53.0) Mean Corpuscular Volume 87.2 fL (80.0-100.0) Mean Corpuscular Hemoglobin 28.7 pg (28.0-32.0) Mean Corpuscular Hemoglobin Concent 32.9 g/dL (32.0-36.0) Red Cell Distribution Width 15.2 % (11.8-14.3) Platelet Count 395 10^3/uL (140-450) Mean Platelet Volume 6.8 fL (6.9-10.8) Neutrophils (%) (Auto) 80.3 % (37.0-80.0) Lymphocytes (%) (Auto) 7.6 % (10.0-50.0) Monocytes (%) (Auto) 11.3 % (0.0-12.0) Eosinophils (%) (Auto) 0.6 % (0.0-7.0) Basophils (%) (Auto) 0.2 % (0.0-2.0) Neutrophils # (Auto) 5.1 10 ^3/uL (1.6-8.6) Lymphocytes # (Auto) 0.5 10 ^3/uL (0.4-5.4) Monocytes # (Auto) 0.7 10 ^3/uL (0-1.3) Eosinophils # (Auto) 0 10 ^3/uL (0-0.8) Basophils # (Auto) 0 10 ^3/uL (0-0.2) Nucleated Red Blood Cells 0.0 % Urine Color Colorless (Yellow) Urine Clarity Clear (Clear) Urine pH 7.0 (5.0-9.0) Urine Specific [place] 1.005 (1.001-1.035) Urine Protein Negative (Negative) Urine Ketones Negative (Negative) Urine Blood Negative /uL (Negative) Urine Nitrite Negative (Negative) Urine Bilirubin Negative (Negative) Urine Urobilinogen Normal mg/dL (Negative) Urine Leukocyte Esterase Negative /uL (Negative) Urine RBC None seen /hpf (0 - 3) Urine Microscopic WBC < 1 /HPF (0-3) Urine Squamous Epithelial Cells None seen /hpf (<5) Urine Bacteria None seen /hpf (None Seen) Urine Glucose Normal mg/dL (Normal) Test 05/11/25 07:02 Troponin I High Sensitivity 81 ng/L (</=54) Other Laboratory Tests 05/14/25 04:57 05/13/25 05:03 Brief Hx & Hospital Course: Final diagnoses: Hemoptysis due to lung cancer and pneumonia, resolved Left lung mass / Cancer No PE Pneumonia due to Gram-positive/Gram-negative mixed roula HTN DM2 Mixed hyperlipidemia 69-year-old male with a history of lung cancer came with hemoptysis and cough productive of dark phlegm His hemoptysis was significant and therefore he was admitted and was treated for pneumonia A CT scan of the lungs showed no PE but showed the tumor and possible obstructive pneumonia With IV antibiotics the patient improved and his hemoptysis resolved He is still having some cough but the phlegm production has decreased a lot He is on room air now saturation in the mid 90s The patient is ready to go home Discharged home on p.o. Levaquin and doxycycline for 7 days Follow up with his primary care physician as soon as possible Condition at Discharge: Stable Final Diagnosis/Problems List Hemoptysis Left lung mass / Cancer No PE Pneumonia HTN DM2 Mixed hyperlipidemia Discharge Disposition: Home SNF Discharge Will this Physician continue t: No Discharge Instruct/Medications Scheduled Aspirin (Aspirin), 325 MG PO DAILY, (Reported) Atorvastatin Calcium (Lipitor), 40 MG PO DAILY, (Reported) Hydrochlorothiazide (Hydrochlorothiazide), 25 MG PO DAILY, (Reported) Losartan Potassium (Losartan Potassium), 100 MG PO DAILY, (Reported) Metformin Hydrochloride (Metformin Hcl), 1,000 MG PO BID, (Reported) Metoprolol Tartrate (Metoprolol Tartrate), 25 MG PO BID, (Reported) Scheduled PRN Ondansetron (Ondansetron Odt), 8 MG PO TIDP PRN, (Reported) Discontinued Medications Ondansetron HCl (Ondansetron), 8 MG PO DAILY, (Reported) Discharge Statement: "Patient was advised to return to the ER or call 911 if any headaches, dizziness, shortness of breath, chest pain, abdominal pain, bleeding, fevers, or worsening of medical condition. Patient was counseled about treatment plan, medications, possible side effects, patientverbalized understanding. All questions were answered to the best of my ability. This discharge took greater then 30 minutes in planning, reviewing documentation, counseling the patient, and discussing with other team members." ASSESSMENT ASSESSMENT Assessment Date of Service: May 15, 2025 Billing Provider: KSYLA JAMES MD Common Visit Codes: [id number] DISCH DAY >30min SKYLA JAMES MD May 15, 2025 15:09
--- NOTE | 2025-05-15 23:28 | DVHPN2 ---
Subjective DOS: 05/15/2025 Patient seen and examined at bedside. Remains on supplemental oxygen Overnight events reviewed. Changes from previous H/P or p: No Changes Eyes: No Pain, No Vision change, No Conjunctivae inflammation, No Eyelid inflammation, No Other, No Redness ENT: No Ear pain, No Ear discharge, No Nose pain, No Nose discharge, No Nose congestion, No Mouth pain, No Mouth swelling, No Throat pain, No Throat swelling, No Other Cardiovascular: No Chest Pain, No Palpitations, No Orthopnea, No Paroxysmal Noc. Dyspnea, No Edema, No Lt Headedness, No Other Respiratory: No Cough, No Dry; Shortness of breath; No SOB with excertion, No Wheezing, No Hemoptysis, No Pleuritic Pain, No Sputum; Other (Hemoptysis) Gastrointestinal: No Nausea, No Vomiting, No Abdominal Pain, No Diarrhea, No Constipation, No Melena, No Hematochezia, No Other Genitourinary: No Dysuria, No Frequency, No Incontinence, No Hematuria, No Retention, No Other Musculoskeletal: No other, No neck pain, No shoulder pain, No arm pain, No back pain, No hand pain, No leg pain, No foot pain Skin: No Rash, No Lesions, No Jaundice, No Bruising, No Other Objective Vitals Vital Signs Date Time Temp Pulse Resp B/P (MAP) Pulse Ox O2 Delivery O2 Flow Rate FiO2 05/15/25 16:53 99.3 98 16 124/71 (88) 95 99.3 05/15/25 10:02 Room Air* 0 21 Intake/Output Intake and Output 05/15/25 07:00 Intake Total 2250 ml Output Total 303 ml Balance 1947 ml Intake Oral 2200 ml IV Total 50 ml Output Urine Total 303 ml Exam Gen.: Patient lying in bed in no apparent distress. On supplemental oxygen. Head: Normocephalic, atraumatic. Eyes: EOMI/PERRLA. Ears: Normal hearing. Normal anatomy. Neck/trachea: Trachea midline, supple. Nose: Normal external anatomy. Mouth: Moist mucous membranes. Chest: Decreased air entry bilaterally. No wheezing or rhonchi. Cardiovascular: Positive S1, positive S2. Regular rate and rhythm. Abdomen: Positive bowel sounds in all 4 quadrants. Soft, non-tender, non- distended. : Deferred. Rectal: Deferred. Skin: Warm, dry. Intact. Extremities: 2+ radial pulses bilaterally. No lower extremity edema. Neuro: Awake, alert, oriented x3. No gross motor or sensory deficits. Cranial nerves II through XII intact. Gait not assessed. General Appearance: Alert, Oriented X3, Cooperative Lungs: Other (Left lung base dullness) Cardiovascular: Regular rate, Normal S1, Normal S2, No murmurs Abdomen: Normal bowel sounds, Soft, No tenderness Extremities: No edema Laboratory Results Laboratory Tests 05/13/25 05:03 05/14/25 04:57 Urinalysis Test 05/11/25 09:28 Urine Color Colorless (Yellow) Urine Clarity Clear (Clear) Urine pH 7.0 (5.0-9.0) Urine Specific [place] 1.005 (1.001-1.035) Urine Protein Negative (Negative) Urine Ketones Negative (Negative) Urine Blood Negative /uL (Negative) Urine Nitrite Negative (Negative) Urine Bilirubin Negative (Negative) Urine Urobilinogen Normal mg/dL (Negative) Urine Leukocyte Esterase Negative /uL (Negative) Urine RBC None seen /hpf (0 - 3) Urine Microscopic WBC < 1 /HPF (0-3) Urine Squamous Epithelial Cells None seen /hpf (<5) Urine Bacteria None seen /hpf (None Seen) Urine Glucose Normal mg/dL (Normal) Microbiology Microbiology Date/Time Source Procedure Growth Status 05/11/25 14:12 Sputum Gram Stain - Final Resulted 05/11/25 14:12 Sputum Respiratory Culture - Preliminary Resulted Assessment/Plan Assessment/Plan Impression: Acute hypoxic respiratory failure Dependence on supplemental oxygen Hemoptysis, resolved Stage 4 lung cancer. Hx of nicotine dependence Events: Remains on supplemental oxygen, 2 LPM NC Taper O2 as tolerated Continue bronchodilators Continue antibiotics - complete course Follow up sputum culture results Antitussive for cough Continue steroids Hemoptysis has resolved. Incentive spirometry Accu-Cheks, ISS Patient is stable for discharge from the pulmonary standpoint. Arrange for home oxygen Labs and imaging reviewed. Rest of plan as noted below. Plan: Supplemental oxygen Titrate to keep O2 sats above 92%. CT angio negative for PE, redemonstration of a large left hilar mass with postobstructive atelectasis of the lingula. Diffuse interlobular septal thickening in the left upper lobe, possibly representing lymphangitic spread of tumor. Small left pleural effusion. Lytic lesion in the left anterolateral 7th rib, unchanged. Continue bronchodilators. Continue antibiotics Blood pressure control Follow up Oncology recs Accu-Cheks, ISS. Monitor renal function. Monitor electrolytes. Supplement as necessary. Monitor ins and outs. DVT prophylaxis. Prognosis: Poor given patient's multiple co-morbidities. Rest of plan per hospitalist and other consultants. Thank you, MACHINE BINDER STRIPPER Dean, for allowing me to participate in this patient's care. Further recommendations will depend on the patient's clinical course. Please do not hesitate to contact me if you have any questions or concerns. This medical document was created using an electronic medical record system with [employer] dictation system. Although these documentations are being carefully reviewed, there may still be some phonetic and typographical changes. The errors are purely typographical, due to imperfection on the software program, and do not reflect any compromise in the patient's medical care. Plan discussed with: Other (KATIE Hein) Visit Coding Pulmonary Billing Provider: ROBERT DIAZ MD Date of Service if different f: May 15, 2025 Common Visit Codes: [id number] INP/OBS CARE (HIGH) ROBERT DIAZ MD May 15, 2025 23:28
== END 2025-05-15 16:47 | disposition home or self-care (01) | DRG 177 ==
LOC: EDBD 06:18 → ER 06:18 → OVERFLOW 10:08 → WEST WING 18:22
PROVIDERS: ADMIT Internal Medicine Geriatric Medicine; ATTEND Internal Medicine Geriatric Medicine
DX: J15.69 Pneumonia due to other Gram-negative bacteria (principal); J96.01 Acute respiratory failure with hypoxia; I24.89 Other forms of acute ischemic heart disease; C34.92 Malignant neoplasm of unspecified part of left bronchus or lung; E11.9 Type 2 diabetes mellitus without complications; D64.9 Anemia, unspecified; J15.9 Unspecified bacterial pneumonia; I10 Essential (primary) hypertension; Z95.2 Presence of prosthetic heart valve; Z99.81 Dependence on supplemental oxygen; E78.2 Mixed hyperlipidemia; E87.6 Hypokalemia; E83.42 Hypomagnesemia; Z95.1 Presence of aortocoronary bypass graft; Z87.891 Personal history of nicotine dependence; Z82.49 Family history of ischemic heart disease and other diseases of the circulatory system; Z85.118 Personal history of other malignant neoplasm of bronchus and lung
CPT/HCPCS: 36415; 36600; 71045; 71275; 80053; 81001; 82805; 82962; 83735; 84484; 85025; 87070; 87077; 87186; 87205; 94640; 99291; 99292; G0378; J1815